=== PATIENT | female | born 2000 | race Hispanic/Latino ===

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

== ENCOUNTER 2020-08-10 11:06 | Inpatient (IN) | payer SELFPAY ==
--- NOTE | 2020-08-10 13:12 | RAD REPORT ---
EXAM DESCRIPTION: RAD - Chest Single View - 08/10/2020 1:00 pm CLINICAL HISTORY: DYSPNEA Chest pain. COMPARISON: Chest Pa And Lat (2 Views) dated 07/06/2017 FINDINGS: Portable technique limits examination quality. Mild bilateral interstitial lung opacities are present. This likely indicates a viral infection or br onchitis. The heart is normal in size. No displaced fractures.
[2020-08-10] MEDS ORDERED: ONDANSETRON 4 MG (ODT) TAB ONE (14:48)
[2020-08-10] MEDS ORDERED: ONDANSETRON 4 MG/2 ML VIAL ONE (17:19)
[2020-08-10] MEDS ORDERED: NA CHLORIDE 0.9% 1,000 ML ONE ×2 (17:20→20:56)
[2020-08-10 17:27] LABS: Absolute Lymphocytes (CBC) 0.6 K/uL (0.7-4.9); Basophils % 0.3 % (0-1.3); Hematocrit 39.8 % (36.0-45.0); Lymphocytes % 3.3 % (15.3-44.8); MPV 9.7 fL (7.6-11.3); RBC Red Blood Cell Count 4.46 M/uL (3.86-4.86)
[2020-08-10] MEDS ORDERED: PROMETHAZINE INJ 25 MG/ML AMP ONE (17:45)
[2020-08-10 18:18] LABS: Albumin 3.1 g/dL (3.4-5.0); Bilirubin Total 2.6 mg/dL (0.2-1.0); Blood Morphology Comment NOT SEEN (NOT SEEN); Platelet Estimate ADEQ; Potassium 3.5 mmol/L (3.5-5.1); Protein, Total 9.8 g/dL (6.4-8.2); White Blood Cell Scan OK (OK)
[2020-08-10 18:27] LABS: Ferritin 272.2 ng/mL (8-388)
[2020-08-10] MEDS ORDERED: MORPHINE 4 MG/ML SYR ONE (18:38)
[2020-08-10 20:03] LABS: Protime INR 1.28
[2020-08-10 20:40] LABS: SARS-COV-2 RT PCR POSITIVE (NEGATIVE)
[2020-08-10 20:49] LABS: Urine Blood 3+ (Negative); Urine Glucose Trace (Negative); Urine Protein 3+ (Negative)
[2020-08-10] MEDS ORDERED: CEFTRIAXONE/SWI 1gm 1 GM/10 ML SYR ONE (20:56)
[2020-08-10] MEDS ORDERED: NA CHLORIDE 0.9% 250 ML ONE (20:56)
[2020-08-10] MEDS ORDERED: AZITHROMYCIN 500 MG INJ IVPB ONE (20:56)
--- NOTE | 2020-08-10 20:56 | ER ---
Nurse's Notes [facility] Name: Zayda Wharton Age: 19 yrs Sex: Female : 2000 Arrival Date: 08/10/2020 Time: 11:08 Bed 5 Private MD: Diagnosis: Pneumonia due to SARS-associated coronavirus;Dehydration;Acute kidney injury;Vomiting;Diarrhea, unspecified;Streptococcal pharyngitis Presentation: 08/10 11:23 Chief complaint: Patient states: chest tightness, upper abd pain, dyspnea, n/v/d x 3 sv days. COVID + on 08/07/20. Coronavirus screen: Client denies travel out of the [place] in the last 14 days. Client presents with at least one sign or symptom that may indicate coronavirus-19. Standard/surgical mask placed on the client. Provider contacted for isolation considerations. Client reports previous positive COVID test result. Ebola Screen: No symptoms or risks identified at this time. Risk Assessment: Do you want to hurt yourself or someone else? Patient reports no desire to harm self or others. Onset of symptoms was August 07, 2020. 11:23 Acuity: YECENIA 2 sv 11:25 Initial Sepsis Screen: Does the patient meet any 2 criteria? RR > 20 per min. HR > 90 sv bpm. Yes Does the patient have a suspected source of infection? Yes: Other: COVID. 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 - Social history:: Smoking status: Patient denies any tobacco usage or history of. Screenin:30 Abuse screen: Denies threats or abuse. Denies injuries from another. Nutritional ld1 screening: No deficits noted. Tuberculosis screening: No symptoms or risk factors identified. Fall Risk IV access (20 points). Total Aponte Fall Scale indicates No Risk (0-24 pts). Assessment: 17:38 General: Appears in no apparent distress. comfortable, Behavior is calm, cooperative, ld1 appropriate for age. Pain: Complains of pain in right lower quadrant and left lower quadrant Pain does not radiate. Pain currently is 7 out of 10 on a pain scale. Quality of pain is described as stabbing, throbbing, Pain began 2-3 days ago. Is intermittent. Neuro: Level of Consciousness is awake, alert, obeys commands, Oriented to person, place, time, situation. Cardiovascular: Patient's skin is warm and dry. Respiratory: Reports shortness of breath at rest on exertion Airway is patent Respiratory effort is even, unlabored, Respiratory pattern is regular, symmetrical. GI: Abdomen is round distended, obese, Pt is actively vomiting clear fluid, Bowel sounds present X 4 quads. Abd is soft Abdomen is tender to palpation Reports lower abdominal pain. : No signs and/or symptoms were reported regarding the genitourinary system. EENT: No deficits noted. Derm: No deficits noted. 18:10 Reassessment: Unable to obtain lab orders and blood cultures. Lab notified at 1800, ld1 router setter at bedside at 1805. 18:13 Reassessment: No changes from previously documented assessment. Patient and/or family ld1 updated on plan of care and expected duration. Pain level reassessed. Patient is alert, oriented x 3, equal unlabored respirations, skin warm/dry/pink. Patient states her nausea is subsiding but still c/o lower abdominal pain level 7/10. ERP notified. See MAR for orders. 18:15 Reassessment: ERP at bedside discussing POC. ld1 19:20 Reassessment: Patient appears in no apparent distress at this time. patient sitting on mg2 the bed. 21:02 Reassessment: MOIZ Thorne - hospitalist at bedside admitting the patient. [facility] [place] 22:07 Reassessment: ultrasound at bedside. mg2 Vital Signs: 11:25 BP 104 / 71; Pulse 122; Resp 30; Temp 97.4; Pulse Ox 98% ; Weight 136.08 kg; Height 5 sv ft. 1 in. (154.94 cm); 14:28 BP 125 / 95; Pulse 106; Resp 28; Temp 97.8; Pulse Ox 98% ; ll1 17:30 BP 107 / 56; Pulse 115; Resp 20; Temp 99.0; Pulse Ox 97% on R/A; Weight 155.58 kg; ld1 Height 5 ft. 1 in. (154.94 cm); Pain 7/10; 18:13 BP 117 / 100; Pulse 116; Resp 18; Temp 99(O); Pulse Ox 99% on R/A; Pain 7/10; ld1 19:20 Pulse 108; Resp 18; Pulse Ox 96% on R/A; mg2 21:01 BP 132 / 100; Pulse 110; Resp 18; Pulse Ox 97% on R/A; mg2 17:30 Body Mass Index 64.81 (155.58 kg, 154.94 cm) ld1 ED Course: 11:08 Patient arrived in ED. ds1 11:23 Arm band placed on. sv 11:24 Triage completed. sv 13:00 Chest Single View XRAY In Process Unspecified. EDMS 16:22 Martín Rick, SANDI is PHCP. pm1 16:22 Nathaniel Rangel MD is Attending Physician. pm1 16:52 Elvia Sahu, NARENDRA is Primary Nurse. ld1 17:30 Patient has correct armband on for positive identification. Bed in low position. Call ld1 light in reach. Side rails up X2. Door closed. Noise minimized. Warm blanket given. 17:30 No provider procedures requiring assistance completed. Inserted saline lock: 20 gauge ld1 in right forearm, using aseptic technique. Blood collected. 18:11 Lipase Sent. sv 18:11 Lactate Sent. sv 18:11 Ferritin Sent. sv 18:11 D-Dimer Sent. sv 18:11 C-Reactive Protein Sent. sv 20:21 Notified Nurse Practitioner and/or Physician B[employer]hot Swage Operator of a critical lab result(s), bb D-Dimer of 3705. Martín Rick FINISHER BRUSH notified. 20:54 Yohannes Morrison is Hospitalizing Provider. pm1 20:55 Inserted saline lock: 22 gauge in left forearm, using aseptic technique. mg2 21:00 IV discontinued, intact, bleeding controlled, No redness/swelling at site. Pressure mg2 dressing applied. Administered Medications: 14:34 Drug: Zofran (Ondansetron) 4 mg Route: PO; ll1 20:32 Follow up: Response: No adverse reaction; Nausea is decreased wh 17:15 Drug: NS 0.9% 1000 ml Route: IV; Rate: 1000 ml; Site: right forearm; ld1 20:33 Follow up: Response: No adverse reaction; IV Status: Completed infusion wh 17:16 Drug: Zofran (Ondansetron) 4 mg Route: IVP; Site: right forearm; ld1 17:37 Follow up: Response: No adverse reaction ld1 20:33 Follow up: Response: No adverse reaction; Nausea is decreased 17:37 Drug: Phenergan 12.5 mg Route: IVP; Site: right forearm; ld1 17:52 Follow up: Response: Nausea is decreased; Vomiting decreased ld1 20:33 Follow up: Response: No adverse reaction; Nausea is decreased 18:24 Drug: morphine 4 mg Route: IVP; Site: right forearm; ld1 18:30 Follow up: Response: No adverse reaction ld1 21:42 Follow up: Response: No adverse reaction 21:00 Drug: AZITHromycin 500 mg Route: IVPB; Infused Over: 1 hrs; Site: left forearm; [facility] [place] 21:42 Follow up: Response: No adverse reaction; IV Status: Infusion continued upon admission 21:01 Drug: NS 0.9% 1000 ml Route: IV; Rate: 150 ml/hr; Site: left forearm; [facility] [place] 21:42 Follow up: Response: No adverse reaction; IV Status: Infusion continued upon admission 21:01 Drug: Rocephin (cefTRIAXone) 1 grams Route: IV; Rate: calculated rate; Site: left [facility] [place] forearm; 21:42 Follow up: Response: No adverse reaction; IV Status: Completed infusion Outcome: 20:55 Decision to Hospitalize by Provider. pm1 21:42 Admitted to Tele accompanied by niko, via stretcher, room 413, with chart, Report mg2 called to NARENDRA Somers 21:42 Condition: stable 21:42 Instructed on the need for admit, Demonstrated understanding of instructions. 22:10 Patient left the ED. [facility] [place] Signatures: Dispatcher [employer] India Yates RN RN Laly Egan ds1 Iram Pastrana RN RN bb Martín Rick, SANDI FINISHER BRUSH pm1 Brenda Jorgensen RN RN Anil Sanchez RN RN [facility] [place] Yosef Kumar RN RN 1 Elvia Sahu RN RN ld1 Corrections: (The following items were deleted from the chart) 11:27 11:23 Acuity: [facility]
--- NOTE | 2020-08-10 20:56 | EDPHYS ---
Physician Documentation [facility] Name: Zayda Wharton Age: 19 yrs Sex: Female : 2000 Arrival Date: 08/10/2020 Time: 11:08 Bed 5 Private MD: ED Physician Nathaniel Rangel HPI: 08/10 17:06 This 19 yrs old Female presents to ER via Ambulatory with complaints of pm1 Abdominal Pain, Chest Pain, Breathing Difficulty, COVID+. 17:06 The patient presents with abdominal pain that is diffuse, chest pain, and shortness of pm1 breath. Onset: The symptoms/episode began/occurred 2 day(s) ago. Associated signs and symptoms: Pertinent positives: nausea, vomiting, and diarrhea, chest pain, shortness of breath. Modifying factors: The symptoms are alleviated by nothing, the symptoms are aggravated by coughing, touching the area. Severity of pain: in the emergency department the pain is actually worse. The patient has not experienced similar symptoms in the past. Patient tested positive for covid on Sunday. She did not have any symptoms at that time. She was tested because all her family members were covid positive. Her symptoms all started on Sunday with cough, body aches, shortness of breath, and multiple episodes of vomiting and diarrhea. 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 - Social history:: Smoking status: Patient denies any tobacco usage or history of. ROS: 17:06 Eyes: Negative for injury, pain, redness, and discharge, ENT: Negative for injury, pm1 pain, and discharge, Neck: Negative for injury, pain, and swelling. 17:06 Back: Negative for injury and pain, MS/Extremity: Negative for injury and deformity, Skin: Negative for injury, rash, and discoloration, Neuro: Negative for headache, weakness, numbness, tingling, and seizure. 17:06 Constitutional: Positive for body aches, chills, fever, poor PO intake. 17:06 Cardiovascular: Positive for chest pain, Negative for edema. 17:06 Respiratory: Positive for cough, shortness of breath. 17:06 Abdomen/GI: Positive for abdominal pain, nausea, vomiting, and diarrhea, Negative for constipation. Exam: 17:06 Constitutional: This is a well developed, well nourished patient who is awake, alert, pm1 and in no acute distress. Head/Face: Normocephalic, atraumatic. 17:06 Back: No spinal tenderness. No costovertebral tenderness. Full range of motion. Skin: Warm, dry with normal turgor. Normal color with no rashes, no lesions, and no evidence of cellulitis. MS/ Extremity: Pulses equal, no cyanosis. Neurovascular intact. Full, normal range of motion. 17:06 Cardiovascular: Rate: tachycardic, Rhythm: regular, Pulses: no pulse deficits are appreciated. 17:06 Respiratory: the patient does not display signs of respiratory distress, Respirations: tachypnea, Breath sounds: are clear throughout. 17:06 Abdomen/GI: Inspection: obese Palpation: soft, in all quadrants, mild abdominal tenderness, diffusely. 17:06 Neuro: Exam negative for acute changes, Orientation: is normal, Mentation: is normal, Motor: is normal, moves all fours. Vital Signs: 11:25 BP 104 / 71; Pulse 122; Resp 30; Temp 97.4; Pulse Ox 98% ; Weight 136.08 kg; Height 5 sv ft. 1 in. (154.94 cm); 14:28 BP 125 / 95; Pulse 106; Resp 28; Temp 97.8; Pulse Ox 98% ; ll1 17:30 BP 107 / 56; Pulse 115; Resp 20; Temp 99.0; Pulse Ox 97% on R/A; Weight 155.58 kg; ld1 Height 5 ft. 1 in. (154.94 cm); Pain 7/10; 18:13 BP 117 / 100; Pulse 116; Resp 18; Temp 99(O); Pulse Ox 99% on R/A; Pain 7/10; ld1 19:20 Pulse 108; Resp 18; Pulse Ox 96% on R/A; mg2 21:01 BP 132 / 100; Pulse 110; Resp 18; Pulse Ox 97% on R/A; mg2 17:30 Body Mass Index 64.81 (155.58 kg, 154.94 cm) ld1 MDM: 16:37 Patient medically screened. pm1 20:51 Data reviewed: vital signs. Data interpreted: Pulse oximetry: on room air is 96 %. pm1 Interpretation: normal. Counseling: I had a detailed discussion with the patient and/or guardian regarding: the historical points, exam findings, and any diagnostic results supporting the discharge/admit diagnosis, lab results, radiology results, the need for further work-up and treatment in the hospital. 08/10 16:54 Order name: CBC with Diff; Complete Time: 18:32 pm1 08/10 16:54 Order name: CMP; Complete Time: 18:32 pm1 08/10 16:56 Order name: Troponin (emerg Dept Use Only); Complete Time: 18:32 pm1 08/10 17:40 Order name: Blood Culture Adult (2) pm1 08/10 17:40 Order name: C-Reactive Protein pm1 08/10 17:40 Order name: D-Dimer pm1 08/10 17:40 Order name: Ferritin pm1 08/10 17:40 Order name: Flu pm1 08/10 17:40 Order name: Lactate pm1 08/10 17:40 Order name: Lipase pm1 08/10 17:40 Order name: Procalcitonin; Complete Time: 20:20 pm1 08/10 17:40 Order name: PT-INR; Complete Time: 20:25 pm1 08/10 17:40 Order name: Ptt, Activated; Complete Time: 20:25 pm1 08/10 17:40 Order name: Strep; Complete Time: 21:11 pm1 08/10 11:26 Order name: Chest Single View XRAY; Complete Time: 16:22 kb 08/10 17:40 Order name: Urine Microscopic Only; Complete Time: 21:53 pm1 08/10 17:41 Order name: Blood Culture EDMS 08/10 17:41 Order name: C-Reactive Protein; Complete Time: 18:32 EDMS 08/10 17:41 Order name: D-Dimer; Complete Time: 20:25 EDMS 08/10 17:41 Order name: Ferritin; Complete Time: 18:32 EDMS 08/10 17:41 Order name: Lactate; Complete Time: 20:50 EDMS 08/10 17:41 Order name: Lipase; Complete Time: 18:32 EDMS 08/10 18:18 Order name: CBC Smear Scan; Complete Time: 18:32 EDMS 08/10 20:41 Order name: COVID-19/FLU A+B; Complete Time: 20:50 EDMS 08/10 20:49 Order name: Urine Dipstick-Ancillary EDOR 08/10 20:54 Order name: Test, Serum; Complete Time: 21:53 mw2 08/10 21:35 Order name: Urine Culture EDOR 08/10 16:54 Order name: IV Saline Lock; Complete Time: 17:15 pm1 08/10 16:56 Order name: EKG; Complete Time: 16:56 pm1 08/10 16:56 Order name: EKG - Nurse/Tech; Complete Time: 17:37 pm1 08/10 17:40 Order name: Cardiac monitoring; Complete Time: 18:11 pm1 08/10 17:40 Order name: Droplet/Contact Precautions; Complete Time: 18:11 pm1 08/10 17:40 Order name: Labs collected and sent; Complete Time: 20:32 pm1 08/10 17:40 Order name: O2 Per Protocol; Complete Time: 18:06 pm1 08/10 17:40 Order name: O2 Sat Monitoring; Complete Time: 18:06 pm1 08/10 17:40 Order name: Urine Dipstick-Ancillary (obtain specimen); Complete Time: 20:35 pm1 08/10 17:57 Order name: Urine Test (obtain specimen); Complete Time: 20:35 pm1 08/10 21:21 Order name: Abdomen Exam Complete EDOR 08/10 21:24 Order name: CONS Physician Consult EDOR Administered Medications: 14:34 Drug: Zofran (Ondansetron) 4 mg Route: PO; ll1 20:32 Follow up: Response: No adverse reaction; Nausea is decreased wh 17:15 Drug: NS 0.9% 1000 ml Route: IV; Rate: 1000 ml; Site: right forearm; ld1 20:33 Follow up: Response: No adverse reaction; IV Status: Completed infusion wh 17:16 Drug: Zofran (Ondansetron) 4 mg Route: IVP; Site: right forearm; ld1 17:37 Follow up: Response: No adverse reaction ld1 20:33 Follow up: Response: No adverse reaction; Nausea is decreased wh 17:37 Drug: Phenergan 12.5 mg Route: IVP; Site: right forearm; ld1 17:52 Follow up: Response: Nausea is decreased; Vomiting decreased ld1 20:33 Follow up: Response: No adverse reaction; Nausea is decreased 18:24 Drug: morphine 4 mg Route: IVP; Site: right forearm; ld1 18:30 Follow up: Response: No adverse reaction ld1 21:42 Follow up: Response: No adverse reaction 21:00 Drug: AZITHromycin 500 mg Route: IVPB; Infused Over: 1 hrs; Site: left forearm; mg2 21:42 Follow up: Response: No adverse reaction; IV Status: Infusion continued upon admission 21:01 Drug: NS 0.9% 1000 ml Route: IV; Rate: 150 ml/hr; Site: left forearm; mg2 21:42 Follow up: Response: No adverse reaction; IV Status: Infusion continued upon admission 21:01 Drug: Rocephin (cefTRIAXone) 1 grams Route: IV; Rate: calculated rate; Site: left mg2 forearm; 21:42 Follow up: Response: No adverse reaction; IV Status: Completed infusion Disposition: 08/11 07:02 Co-signature as Attending Physician, Nathaniel Rangel MD. rn Disposition: 08/10/20 20:55 Hospitalization ordered by Yohannes Morrison for Inpatient Admission. Preliminary diagnosis are Pneumonia due to SARS-associated coronavirus, Dehydration, Acute kidney injury, Vomiting, Diarrhea, unspecified, Streptococcal pharyngitis. - Bed requested for Telemetry/MedSurg (Inpatient). - Status is Inpatient Admission. mg2 - Condition is Stable. - Problem is new. - Symptoms have improved. Signatures: Dispatcher [employer] EDMS India Sanchez RN RN sv Nieto, Roman, MD MD rn Garcia, Cindy, RN RN cg Marinas, Patrick, NP CHICKEN BONER pm1 Anil Sanchez RN RN mg2 Yosef Kumar RN RN ll1 Elvia Sahu RN RN [email or web address] Brenda Jorgensen RN Corrections: (The following items were deleted from the chart) 08/10 18:48 17:42 Abdomen Pelvis W Con+CT.RAD.BRZ ordered. EDMS EDMS 18:48 17:42 Chest For PE Angio+CT.RAD.BRZ ordered. EDMS EDMS 19:49 17:41 Influenza Screen (A ordered. EDMS EDMS 19:49 17:57 CORONAVIRUS+MR.LAB.BRZ ordered. EDMS EDMS 21:34 20:55 Hospitalization Ordered by Yohannes Morrison for Inpatient Admission. Preliminary cg diagnosis is Pneumonia due to SARS-associated coronavirus; Dehydration; Acute kidney injury; Vomiting; Diarrhea, unspecified. Bed requested for Telemetry/MedSurg (Inpatient). Status is Inpatient Admission. Condition is Stable. Problem is new. Symptoms have improved. pm1 21:34 21:34 08/10/2020 20:55 Hospitalization Ordered by Yohannes Morrison for Inpatient pm1 Admission. Preliminary diagnosis is Pneumonia due to SARS-associated coronavirus; Dehydration; Acute kidney injury; Vomiting; Diarrhea, unspecified. Bed requested for Telemetry/MedSurg (Inpatient). Status is Inpatient Admission. Condition is Stable. Problem is new. Symptoms have improved. cg 22:10 21:34 08/10/2020 20:55 Hospitalization Ordered by Yohannes Morrison for Inpatient mg2 Admission. Preliminary diagnosis is Pneumonia due to SARS-associated coronavirus; Dehydration; Acute kidney injury; Vomiting; Diarrhea, unspecified; Streptococcal pharyngitis. Bed requested for Telemetry/MedSurg (Inpatient). Status is Inpatient Admission. Condition is Stable. Problem is new. Symptoms have improved. pm1
[2020-08-10 21:34] LABS: Urine Amorphous Sediment 1+ /HPF (NONE SEEN); Urine Bacteria LOADED /HPF (<20)
[2020-08-10] MEDS ORDERED: IVERMECTIN 3 MG TABLET PO SCH (22:00)
[2020-08-10] MEDS ORDERED: BENZONATATE 100 MG CAP PO PRN (22:33)
[2020-08-10] MEDS ORDERED: ACETAMINOPHEN 500 MG TAB PO PRN (22:33)
[2020-08-10] MEDS: NA CHLORIDE 0.9% 1,000 ML IV SCH (23:00)
[2020-08-10 23:49] VITALS: BMI 66.5
[2020-08-11] MEDS: MORPHINE 2 MG/ML SYR IV PRN ×3 (00:27→23:25)
[2020-08-11] MEDS ORDERED: APIXABAN 5 MG TABLET PO SCH ×2 (01:54→09:00)
[2020-08-11 04:22] LABS: Basophils % 0.2 % (0-1.3); Hematocrit 33.2 % (36.0-45.0); MPV 10.5 fL (7.6-11.3); RBC Red Blood Cell Count 3.74 M/uL (3.86-4.86)
[2020-08-11 04:43] LABS: Thyroid Stimulating Hormone 1.01 uIU/mL (0.360-3.740); Uric Acid 11.4 mg/dL (2.6-6.0)
[2020-08-11 04:44] LABS: ALT/SGPT 39 U/L (12-78); AST/SGOT 39 U/L (15-37); Albumin 2.4 g/dL (3.4-5.0); Alkaline Phosphatase 72 U/L (45-117); BUN Blood Urea Nitrogen 37 mg/dL (7-18); Bicarbonate 26 mmol/L (21-32); Bilirubin Total 2.3 mg/dL (0.2-1.0); Glucose Level 132 mg/dL (74-106); Magnesium 1.8 mg/dL (1.8-2.4); Potassium 3.4 mmol/L (3.5-5.1); Protein, Total 7.7 g/dL (6.4-8.2); Sodium Level 137 mmol/L (136-145)
--- NOTE | 2020-08-11 05:31 | P.HP ---
Certification for Inpatient Patient admitted to: Inpatient With expected LOS: >2 Midnights Patient will require the following post-hospital care: None Practitioner: I am a practitioner with admitting privileges, knowledge of patient current condition, hospital course, and medical plan of care. Services: Services provided to patient in accordance with Admission requirements found in Title 42 Section 412.3 of the Code of Federal Regulations <Cody Long - Last Filed: 08/11/20 05:45> Patient History Date of Service: 08/11/20 Reason for admission: covid pneumonia, CELESTE, UTI History of Present Illness: Ms. Wharton is a 19 yo F with no PMH here today with COVID + diagnosis on Sunday, symptom onset on Sunday. She had nonstop vomiting, diarrhea, chills, 10/10 RLQ abdominal pain. She says she has had this abdominal pain 1-2x in the past. Pain is worse with ambulation, improved wiht Alleve. She reports night sweats, cough, SOB, wheezing, polyuria, flank pain. She denies dysuria, hemoptysis. WBC 17.6. D dimer 3705. Na 133. BUN 30. Cr 2.4. GFR 26. lactic acid 2.7. CRP 344. Procal 7.04. Tbili 2.6. AST 42. T protein 9.8. Albumin 3.1. Strep positive. Urine blood 3+, leukocyte 3+, RBC 5-10, WBC 5-10, Bacteria loaded, protein 3+. - Past Medical/Surgical History Has patient received pneumonia vaccine in the past: No Diabetic: No Past Medical History: Patient denies medical history Past Surgical History: Patient denies surgical history - Family History Brother -: Lung disease Notes: asthma - Social History Smoking Status: Never smoker Alcohol use: Yes CD- Drugs: No Caffeine use: Yes Place of Residence: Home <Cody Long - Last Filed: 08/11/20 05:45> Date of Service: 08/11/20 <mayra ribeiro - Last Filed: 08/11/20 19:29> Allergies No Known Allergies Allergy (Verified 08/10/20 23:49) Home Medications: NK [No Home Meds] 08/10/20 Review of Systems General: Chills, Sweats, As per HPI Eyes: Unremarkable ENT: Unremarkable Respiratory: Cough, Shortness of Breath, As per HPI Cardiovascular: Unremarkable Gastrointestinal: Nausea, Vomiting, Abdominal Pain, As per HPI Genitourinary: Frequency, As per HPI Musculoskeletal: Unremarkable Integumentary: Unremarkable Neurological: Unremarkable Lymphatics: Unremarkable <Cody Long - Last Filed: 08/11/20 05:45> Physical Examination - Vital Signs Temperature: 97.6 F Blood Pressure: 120/68 Pulse: 96 Respirations: 20 Pulse Ox (%): 92 - Physical Exam General: Alert, In no apparent distress, Oriented x3, Cooperative HEENT: Atraumatic, Normocephalic, PERRLA, Mucous membr. moist/pink Neck: Supple, 2+ carotid pulse no bruit, JVD not distended, No Thyromegaly, No LAD Respiratory: Diminished Cardiovascular: No edema, Normal pulses, Regular rate/rhythm, Normal S1 S2, No gallops, No rubs, No murmurs Capillary refill: <2 Seconds Gastrointestinal: Normal bowel sounds, Soft and benign, Non-distended, No ascites, No masses, No rebound, No guarding, Tenderness Musculoskeletal: No clubbing, No swelling, No contractures, No erythema, No tenderness, No warmth Integumentary: No rashes, No breakdown, No significant lesion, No tenderness/swelling, No erythema, No warmth, No cyanosis Neurological: Normal gait, Normal speech, Normal strength at 5/5 x4 extr, Normal tone, Sensation intact, Cranial nerves 3-12 intact, Normal affect Lymphatics: No axilla or inguinal lymphadenopathy - Studies Laboratory Data (last 24 hrs) 08/10/20 18:41: PT 14.8 H, INR 1.28, APTT 34.1 08/10/20 17:10: Lipase 100 08/10/20 17:10: Sodium 133 L, Potassium 3.5, BUN 30 H, Creatinine 2.40 H, Glucose 133 H, Total Bilirubin 2.6 H, AST 42 H, ALT 53, Alkaline Phosphatase 98 08/10/20 17:10: WBC 17.60 H, Hgb 13.5, Hct 39.8, Plt Count 196 Microbiology Data (last 24 hrs): 08/10/20 17:40 Throat Group A Streptococcus Rapid Screen - Final <Cody Long - Last Filed: 08/11/20 05:45> - Studies Laboratory Data (last 24 hrs) 08/10/20 18:41: PT 14.8 H, INR 1.28, APTT 34.1 Microbiology Data (last 24 hrs): 08/10/20 17:40 Throat Group A Streptococcus Rapid Screen - Final <mayra ribeiro - Last Filed: 08/11/20 19:29> Assessment and Plan - Problems (Diagnosis) (1) Pneumonia due to COVID-19 virus Current Visit: Yes Status: Acute (2) UTI (urinary tract infection) Current Visit: Yes Status: Acute Qualifiers: Urinary tract infection type: site unspecified Hematuria presence: without hematuria Qualified Code(s): N39.0 - Urinary tract infection, site not specified (3) Strep pharyngitis Current Visit: Yes Status: Acute (4) CELESTE (acute kidney injury) Current Visit: Yes Status: Acute (5) Elevated d-dimer Current Visit: Yes Status: Acute - Plan consulted pulm and respiratory therapy covid supplements, IV steroids, daily room air sats, currently on room air, breathing treatments PRN for tachypnea elevated d dimer, unable to get CTPE due to CELESTE, eliquis 10mg BID nephrology consulted for CELESTE, bladder scan pending sputum, urine, and blood cultures pending ceftriaxone and azithromycin daily to treat UTI and strep Discharge Plan: Home Plan to discharge in: 72 Hours - Advance Directives Does patient have a Living Will: No Does patient have a Durable POA for Healthcare: No - Code Status/Comfort Care Code Status Assessed: Yes (full code) Critical Care: No Time Spent Managing Pts Care (In Minutes): 70 <Cody Long - Last Filed: 08/11/20 05:45> - Problems (Diagnosis) (1) CELESTE (acute kidney injury) Current Visit: Yes Status: Acute (2) Elevated d-dimer Current Visit: Yes Status: Acute (3) Pneumonia due to COVID-19 virus Current Visit: Yes Status: Acute (4) Strep pharyngitis Current Visit: Yes Status: Acute (5) UTI (urinary tract infection) Current Visit: Yes Status: Acute Qualifiers: Urinary tract infection type: site unspecified Hematuria presence: without hematuria Qualified Code(s): N39.0 - Urinary tract infection, site not specified Physician Review: Patient Assessed, Agree with Above Assessment and Plan Physician Review Additional Text: CELESTE COVID Pneumonia plan: IV steroid Vitamin supplementation Consult to pulmonary Consulting nephrology Monitor renal function. <mayra ribeiro - Last Filed: 08/11/20 19:29>
[2020-08-11 06:00] LABS: NT PRO-BNP 24 pg/mL (<125); Troponin I < 0.02 ng/mL (0.0-0.045)
--- NOTE | 2020-08-11 07:57 | P.CNS ---
Date of Consult: 08/11/20 Reason for Consult: CELESTE Chief Complaint: covid pneumonia, CELESTE, UTI History of Present Illness: 19F w/ PMHx & recent dx of covid infection last wk, who p/w N/V/D/abd/flank pain, cough, SOB, night sweats, & chills admitted for covid PNA found to have UTI & CELESTE, admitted for further eval & mngt. Allergies No Known Allergies Allergy (Verified 08/10/20 23:49) Home Medications: NK [No Home Meds] 08/10/20 - Past Medical/Surgical History Diabetic: No - Family History Brother Medical History: Lung disease Notes: asthma - Social History Alcohol use: Yes CD- Drugs: No Caffeine use: Yes Place of Residence: Home Review of Systems General: Sweats, Malaise Eyes: Unremarkable ENT: Unremarkable Respiratory: Cough, Shortness of Breath Cardiovascular: Unremarkable Gastrointestinal: Nausea, Vomiting, Abdominal Pain, Diarrhea Genitourinary: Unremarkable Musculoskeletal: Unremarkable (gen weakness) Integumentary: Unremarkable Neurological: Weakness Lymphatics: Unremarkable Physical Examination Temp Pulse Resp BP Pulse Ox 97.6 F 96 H 20 120/68 92 08/11/20 05:50 08/11/20 05:50 08/11/20 05:50 08/11/20 05:50 08/11/20 05:50 Other Physical/Emotional Findings: P.E. not done d/t covid isolation Laboratory Data (last 24 hrs) 08/10/20 18:41: PT 14.8 H, INR 1.28, APTT 34.1 08/10/20 17:10: Lipase 100 08/10/20 17:10: Sodium 133 L, Potassium 3.5, BUN 30 H, Creatinine 2.40 H, Glucose 133 H, Total Bilirubin 2.6 H, AST 42 H, ALT 53, Alkaline Phosphatase 98 08/10/20 17:10: WBC 17.60 H, Hgb 13.5, Hct 39.8, Plt Count 196 Conclusions/Impression: # CELESTE likely 2/2 prerenal state + ATN/sepsis Received IV fluids ? UTI; cont abx; f/u UCx Monitor renal panel + I&O # Sepsis 2/2 covid pna Mngt per primary team Cautious IV/po fluid hydration as goal is to keep lungs dry w/ covid pna # Hyperuricemia Received IV fluids Recheck serum urate when no longer volume depleted # Hypokalemia Replete via KCl
[2020-08-11] MEDS ORDERED: POTASSIUM CL SA 10 MEQ TAB PO ONE (08:00)
--- NOTE | 2020-08-11 08:02 | RAD REPORT ---
EXAM DESCRIPTION: US - Urinary Bladder - 08/11/2020 7:15 am CLINICAL HISTORY: Acute renal insufficiency FINDINGS: The bladder is not well distended but appears grossly normal. 9 centimeter cystic right adnexal mass. IMPRESSION: No gross abnormality of an incompletely distended bladder. 9 centimeter right adnexal cystic mass probably an ovarian cyst. Blood flow to the right ovary is see n. Follow-up ultrasound in 6 weeks recommended
[2020-08-11] MEDS: NA CHLORIDE 0.9% 1,000 ML IV SCH (08:33)
[2020-08-11] MEDS ORDERED: CEFTRIAXONE 1 GM/NS 50 ML 1 GM/50 ML BAG IV SCH (09:00)
[2020-08-11] MEDS ORDERED: ALBUTEROL 2.5 MG/3 ML NEB SOL NEB PRN (09:00)
[2020-08-11] MEDS ORDERED: FUROSEMIDE 40 MG/4 ML VIAL IV SCH (09:00)
[2020-08-11] MEDS: VITAMIN D 1000 UNIT TAB PO SCH (09:36)
[2020-08-11] MEDS: ASCORBIC ACID 500 MG TABLET PO SCH ×4 (09:36→21:27)
[2020-08-11] MEDS: FAMOTIDINE 20 MG TAB PO SCH (09:36)
[2020-08-11] MEDS: ZINC SULFATE 220 MG CAP PO SCH (09:37)
[2020-08-11] MEDS: METHYLPREDNISOLONE 125 MG INJ IV SCH ×2 (09:37→21:27)
[2020-08-11] MEDS: THIAMINE HCL 100 MG TABLET PO SCH (09:37)
[2020-08-11] MEDS: IVERMECTIN 3 MG TABLET PO SCH (09:44)
[2020-08-11] MEDS: ONDANSETRON 4 MG/2 ML VIAL IV PRN ×2 (10:02→23:25)
[2020-08-11 10:17] LABS: Urine pH >=9.0 (5.0-7.0)
--- NOTE | 2020-08-11 11:04 | RAD REPORT ---
EXAM DESCRIPTION: US - Abdomen Exam Complete - 08/10/2020 10:13 pm CLINICAL HISTORY: RLQ abdominal and flank pain TECHNIQUE: Real-time and stephens scale sonographic imaging of the abdomen was performed. COMPARISON: None available for comparison FINDINGS: Limitations: Technically limited secondary to overlying body habitus. Liver: 19.9 cm. Mildly increased in echogenicity compatible with steatosis. No focal mass. Gallbladder: No gallstones, wall thickening, or pericholecystic fluid. Common bile duct: 7 mm in diameter. There is no intrahepatic biliary ductal dilatation. Pancreas: The pancreas is obscured by overlying bowel gas. Right kidney: 11.9 x 5.5 x 5 cm. No focal mass, calculus or hydronephrosis. Left kidney: 12 x 6.7 x 4.6 cm. No focal mass, calculus or hydronephrosis. Spleen: Obscured Aorta: Obscured IVC: Unremarkable as visualized Free fluid: None IMPRESSION: Technically limited exam. No acute abnormality. Electronically signed by: Damion Lopes MD 08/10/2020 10:24 PM CDT Due to temporary technical issues with the PACS/Fluency reporting system, reports are being signed by the in house radiologist without review as a courtesy to ensure prompt reporting. The interpreting r adiologist is fully responsible for the content of the report.
--- NOTE | 2020-08-11 12:48 | EKG ---
Test Date: 2020-08-10 Test Time: 17:32:42 Bookkeeping Machine Mechanic: Danyelle COLEMAN MEASUREMENT RESULTS: Intervals: Rate: 115 RI: 122 QRSD: 78 QT: 310 QTc: 428 [place]: P: 42 RI: 122 QRS: 49 T: 132 INTERPRETIVE STATEMENTS: Sinus tachycardia ST & T wave abnormality, consider lateral ischemia Abnormal ECG No previous ECG available for comparison Electronically Signed On 08-11-20 12:45:34 CDT by Krishan Watt
--- NOTE | 2020-08-11 12:54 | P.CNS ---
Date of Consult: 08/11/20 Reason for Consult: Irvin virus pneumonia Chief Complaint: covid pneumonia, CELESTE, UTI History of Present Illness: Patient is 19 years of age diagnosed with irvin virus on Sunday came in with nonstop vomiting diarrhea chills right upper quadrant discomfort has an abdominal discomfort presented with minimal hypoxemia and renal failure patient does not have a physician does not take any medication at home Allergies No Known Allergies Allergy (Verified 08/10/20 23:49) Home Medications: NK [No Home Meds] 08/10/20 - Past Medical/Surgical History Diabetic: No - Family History Brother Medical History: Lung disease Notes: asthma - Social History Alcohol use: Yes CD- Drugs: No Caffeine use: Yes Place of Residence: Home Review of Systems General: Weakness Respiratory: Shortness of Breath Physical Examination Temp Pulse Resp BP Pulse Ox 100 F 96 H 21 H 136/71 95 08/11/20 12:00 08/11/20 12:00 08/11/20 12:00 08/11/20 12:00 08/11/20 12:00 Laboratory Data (last 24 hrs) 08/10/20 18:41: PT 14.8 H, INR 1.28, APTT 34.1 08/10/20 17:10: Lipase 100 08/10/20 17:10: Sodium 133 L, Potassium 3.5, BUN 30 H, Creatinine 2.40 H, Glucose 133 H, Total Bilirubin 2.6 H, AST 42 H, ALT 53, Alkaline Phosphatase 98 08/10/20 17:10: WBC 17.60 H, Hgb 13.5, Hct 39.8, Plt Count 196 - Problems (1) Pneumonia due to COVID-19 virus Current Visit: Yes Status: Acute Plan: Patient is 19 years of age admitted with mild hypoxemia irvin virus pneumonia some interstitial changes white count is elevated (2) Renal failure Current Visit: Yes Status: Acute Plan: Patient admitted with renal failure not sure whether this acute on chronic of chronic ultrasound does not show any evidence of obstruction nephrology has been console did the no improvement with IV fluids the Lasix given continue with steroid D-dimer elevated as most likely from irvin virus infection also has a mild temperature room-air sat is 92% Qualifiers: Acute renal failure type: unspecified
[2020-08-11] MEDS ORDERED: Remdesivir 200 MG in NA CHLORIDE 0.9% 250 ML IV ONE (13:30)
[2020-08-11 14:37] LABS: Urine Protein/Creatinine Ratio 1.6 ratio (<0.15)
[2020-08-11 14:38] LABS: UR PROTEIN 99 mg/dL (<11.9); UR SODIUM 56 mmol/L (27-287)
[2020-08-11] MEDS ORDERED: CEFTRIAXONE/SWI 1gm 1 GM/10 ML SYR IV SCH (18:00)
[2020-08-11] MEDS ORDERED: AZITHROMYCIN IV 500 MG in NA CHLORIDE 0.9% 250 ML IVPB SCH (18:00)
[2020-08-11 19:01] LABS: Urine Appearance CLOUDY (Clear); Urine Bilirubin NEGATIVE (Negataive); Urine Blood 3+ (Negative); Urine Color YELLOW (Yellow); Urine Glucose NEGATIVE (Negative); Urine Microscopic Reflex ORDER UMIC; Urine Protein 2+ (Negative); Urine Urobilinogen 0.2 mg/dL (0.2-1.0)
[2020-08-11 19:02] LABS: Urine Bacteria 20-50 /HPF (<20); Urine RBC <5 /HPF (NONE SEEN)
--- NOTE | 2020-08-11 19:10 | P.PN ---
Subjective Date of Service: 08/11/20 Chief Complaint: covid pneumonia, CELESTE, UTI Patient denies shortness of breath. She is tolerating room air. Serum creatinine trended up. Physical Examination - Vital Signs Temperature: 96.8 F Blood Pressure: 125/72 Pulse: 85 Respirations: 32 Pulse Ox (%): 95 - Physical Exam General: Alert, In no apparent distress, Obese Neck: JVD not distended Respiratory: Other (Non-labored breathing) Cardiovascular: No edema, Regular rate/rhythm Gastrointestinal: Soft and benign, Non-distended Musculoskeletal: No swelling, No erythema Integumentary: No rashes Neurological: Normal strength at 5/5 x4 extr - Studies Laboratory Data (last 24 hrs) 08/10/20 18:41: PT 14.8 H, INR 1.28, APTT 34.1 Microbiology Data (last 24 hrs): 08/10/20 17:40 Throat Group A Streptococcus Rapid Screen - Final Assessment And Plan - Current Problems (Diagnosis) (1) CELESTE (acute kidney injury) Current Visit: Yes Status: Acute (2) Elevated d-dimer Current Visit: Yes Status: Acute (3) Pneumonia due to COVID-19 virus Current Visit: Yes Status: Acute (4) Strep pharyngitis Current Visit: Yes Status: Acute (5) UTI (urinary tract infection) Current Visit: Yes Status: Acute Qualifiers: Urinary tract infection type: site unspecified Hematuria presence: without hematuria Qualified Code(s): N39.0 - Urinary tract infection, site not specified - Plan Awaiting nephrology recommendation regarding CELESTE. Discontinue IV Lasix since her creatinine trended up. Continue IV antibiotics. Pulmonary is following. Patient started on Remdesivir. Continue IV steroid Continue Eliquis. Patient is on zinc, thiamine, vitamin-C and vitamin-D. Supplemental oxygen as needed.
[2020-08-11] MEDS: APIXABAN 5 MG TABLET PO SCH (21:27)
[2020-08-12 04:06] LABS: Absolute Lymphocytes (CBC) 0.4 K/uL (0.7-4.9); Lymphocytes % 5.3 % (15.3-44.8); MPV 10.1 fL (7.6-11.3); RBC Red Blood Cell Count 3.31 M/uL (3.86-4.86)
[2020-08-12 04:21] LABS: Albumin 2.2 g/dL (3.4-5.0); Bilirubin Direct 0.9 mg/dL (0-0.2); Bilirubin Total 1.4 mg/dL (0.2-1.0); Potassium 3.7 mmol/L (3.5-5.1); Protein, Total 7.9 g/dL (6.4-8.2)
[2020-08-12] MEDS: MORPHINE 2 MG/ML SYR IV PRN (05:45)
--- NOTE | 2020-08-12 07:43 | P.PN ---
Subjective Date of Service: 08/13/20 Chief Complaint: covid pneumonia, CELESTE, UTI Subjective: No new changes Physical Examination - Vital Signs Temperature: 96.8 F Blood Pressure: 129/74 Pulse: 95 Respirations: 20 Pulse Ox (%): 92 - Physical Exam Other Physical/Emotional Findings: P.E. not done d/t covid isolation Assessment And Plan - Plan # CELESTE likely 2/2 prerenal state + ATN/sepsis Improving Received IV fluids ? UTI; cont abx; f/u UCx Monitor renal panel + I&O # Sepsis 2/2 covid pna Mngt per primary team Cautious IV/po fluid hydration as goal is to keep lungs dry w/ covid pna # Hyperuricemia Received IV fluids Recheck serum urate when no longer volume depleted # Hypokalemia Resolved Monitor/replete prn via KCl Physician Review: Patient Assessed, Agree with Above Assessment and Plan
[2020-08-12 08:18] LABS: Magnesium 2.5 mg/dL (1.8-2.4)
[2020-08-12] MEDS ORDERED: CEFTRIAXONE 1 GM/NS 50 ML 1 GM/50 ML BAG IV SCH (09:00)
[2020-08-12] MEDS: ZINC SULFATE 220 MG CAP PO SCH (09:38)
[2020-08-12] MEDS: ASCORBIC ACID 500 MG TABLET PO SCH ×4 (09:38→21:55)
[2020-08-12] MEDS: APIXABAN 5 MG TABLET PO SCH ×2 (09:38→21:56)
[2020-08-12] MEDS: THIAMINE HCL 100 MG TABLET PO SCH (09:39)
[2020-08-12] MEDS: METHYLPREDNISOLONE 125 MG INJ IV SCH ×2 (09:39→21:55)
[2020-08-12] MEDS: VITAMIN D 1000 UNIT TAB PO SCH (09:39)
[2020-08-12] MEDS: FAMOTIDINE 20 MG TAB PO SCH (09:39)
--- NOTE | 2020-08-12 09:40 | P.PN ---
Subjective Date of Service: 08/12/20 Chief Complaint: covid pneumonia, CELESTE, UTI Subjective: C/O voiced (c/o of back pain - no SOB , no cough) Physical Examination - Vital Signs Temperature: 96.8 F Blood Pressure: 129/74 Pulse: 95 Respirations: 20 Pulse Ox (%): 92 - Physical Exam General: Alert, In no apparent distress, Oriented x3, Obese HEENT: Atraumatic, Normocephalic, PERRLA Neck: Supple, 2+ carotid pulse no bruit, JVD not distended Respiratory: Clear to auscultation bilaterally, Normal air movement, Diminished Cardiovascular: No edema, Normal pulses, Regular rate/rhythm Capillary refill: <2 Seconds Gastrointestinal: Normal bowel sounds, Soft and benign, Non-distended Musculoskeletal: No clubbing, No swelling Integumentary: No rashes, No breakdown, No significant lesion Neurological: Normal gait, Normal speech, Normal strength at 5/5 x4 extr Other Physical/Emotional Findings: P.E. not done d/t covid isolation Assessment And Plan - Current Problems (Diagnosis) (1) CELESTE (acute kidney injury) Current Visit: Yes Status: Acute (2) Pneumonia due to COVID-19 virus Current Visit: Yes Status: Acute (3) UTI (urinary tract infection) Current Visit: Yes Status: Acute Qualifiers: Urinary tract infection type: site unspecified Hematuria presence: without hematuria Qualified Code(s): N39.0 - Urinary tract infection, site not specified Physician Review: Patient Assessed, Agree with Above Assessment and Plan Physician Review Additional Text: Acute kidney injury-likely due to cold VD HTN Obesity Back pain-intermittent Covid 19 pneumonia Plan Creatinine slightly improved to 2.57 Volume status controlled, no need for IV fluid all Lasix now Continue pain regimen p.r.n. for pain Increase mobility discuss If further improvement in creatinine a.m., can discharge home We benefit from Trental for renal tubular protection Time Spent Managing PTS Care (In Minutes): 35
[2020-08-12] MEDS: Remdesivir 100 MG in NA CHLORIDE 0.9% 250 ML IV SCH (10:07)
[2020-08-12] MEDS: PENTOXIFYLLINE ER 400 MG TAB PO SCH ×2 (12:41→21:55)
[2020-08-12] MEDS: CEFTRIAXONE/SWI 1gm 1 GM/10 ML SYR IV SCH (16:26)
[2020-08-12] MEDS: Oxycodone HCl/Acetaminophen 1 TAB TAB PO PRN ×2 (16:27→21:54)
[2020-08-13] MEDS: Oxycodone HCl/Acetaminophen 1 TAB TAB PO PRN ×3 (03:27→11:45)
[2020-08-13 04:41] LABS: Albumin 2.4 g/dL (3.4-5.0); Bilirubin Direct 0.4 mg/dL (0-0.2); Bilirubin Total 0.8 mg/dL (0.2-1.0); Magnesium 2.8 mg/dL (1.8-2.4); Phosphorus 3.3 mg/dL (2.5-4.9); Potassium 4.2 mmol/L (3.5-5.1); Protein, Total 8.2 g/dL (6.4-8.2)
[2020-08-13] MEDS: ZINC SULFATE 220 MG CAP PO SCH (07:52)
[2020-08-13] MEDS: FAMOTIDINE 20 MG TAB PO SCH (07:53)
[2020-08-13] MEDS: ASCORBIC ACID 500 MG TABLET PO SCH ×4 (07:53→21:44)
[2020-08-13] MEDS: APIXABAN 5 MG TABLET PO SCH ×2 (07:53→21:44)
[2020-08-13] MEDS: IVERMECTIN 3 MG TABLET PO SCH (07:53)
[2020-08-13] MEDS: METHYLPREDNISOLONE 125 MG INJ IV SCH ×2 (07:53→21:44)
[2020-08-13] MEDS: VITAMIN D 1000 UNIT TAB PO SCH (07:53)
[2020-08-13] MEDS: THIAMINE HCL 100 MG TABLET PO SCH (07:54)
[2020-08-13] MEDS: PENTOXIFYLLINE ER 400 MG TAB PO SCH ×2 (07:56→21:44)
--- NOTE | 2020-08-13 07:56 | P.PN ---
Subjective Date of Service: 08/13/20 Chief Complaint: covid pneumonia, CELESTE, UTI Subjective: No new changes, Tolerating diet Physical Examination - Vital Signs Temperature: 96.8 F Blood Pressure: 129/74 Pulse: 95 Respirations: 20 Pulse Ox (%): 92 - Physical Exam Other Physical/Emotional Findings: P.E. not done d/t covid isolation Assessment And Plan - Plan # CELESTE likely 2/2 prerenal state + ATN/sepsis Continues to improve Received IV fluids [place] po fluid intake Monitor renal panel + I&O # Klebsiella UTI May switch rocephin to po abx # Sepsis 2/2 covid pna Mngt per primary team Cautious IV/po fluid hydration as goal is to keep lungs dry w/ covid pna # Hyperuricemia Received IV fluids Recheck serum urate when no longer volume depleted Physician Review: Patient Assessed, Agree with Above Assessment and Plan Physician Review Additional Text: CELESTE COVID Pneumonia plan: IV steroid Vitamin supplementation Consult to pulmonary Consulting nephrology Monitor renal function.
[2020-08-13] MEDS: Remdesivir 100 MG in NA CHLORIDE 0.9% 250 ML IV SCH (08:07)
[2020-08-13] MEDS: CEFTRIAXONE/SWI 1gm 1 GM/10 ML SYR IV SCH (16:54)
--- NOTE | 2020-08-13 17:28 | P.PN ---
Subjective Date of Service: 08/13/20 Chief Complaint: covid pneumonia, CELESTE, UTI Patient denies shortness of breath. She is tolerating room air. She has no new complaint except intermittent back pain which she attributes to bed discomfort. Physical Examination - Vital Signs Temperature: 97.1 F Blood Pressure: 124/63 Pulse: 55 Respirations: 18 Pulse Ox (%): 94 - Physical Exam General: Alert, In no apparent distress Neck: Supple Respiratory: Other (Nonlabored breathing) Cardiovascular: No edema, Regular rate/rhythm Gastrointestinal: Soft and benign, Non-distended Integumentary: No rashes Neurological: Other (No focal motor deficit.) Other Physical/Emotional Findings: P.E. not done d/t covid isolation Assessment And Plan - Current Problems (Diagnosis) (1) CELESTE (acute kidney injury) Current Visit: Yes Status: Acute (2) Elevated d-dimer Current Visit: Yes Status: Acute (3) Pneumonia due to COVID-19 virus Current Visit: Yes Status: Acute (4) Strep pharyngitis Current Visit: Yes Status: Acute (5) UTI (urinary tract infection) Current Visit: Yes Status: Acute Qualifiers: Urinary tract infection type: site unspecified Hematuria presence: without hematuria Qualified Code(s): N39.0 - Urinary tract infection, site not specified - Plan Patient treated briefly with IV fluid. Serum creatinine has significantly improved. Now Cr is 1.55. IV fluid discontinued. Urine culture is growing Klebsiella oxytoca sensitive to Rocephin. Patient to complete 3 days of IV Rocephin. Pulmonary is following. Patient started on Remdesivir. She will complete Remdesivir tomorrow. Continue IV steroid Continue Eliquis. Patient is on zinc, thiamine, vitamin-C and vitamin-D. Nephrology is following. Physician Review: Patient Assessed, Agree with Above Assessment and Plan Physician Review Additional Text: CELESTE COVID Pneumonia plan: IV steroid Vitamin supplementation Consult to pulmonary Consulting nephrology Monitor renal function.
[2020-08-14 08:09] LABS: Albumin 2.3 g/dL (3.4-5.0); Bilirubin Direct 0.3 mg/dL (0-0.2); Bilirubin Total 0.5 mg/dL (0.2-1.0); Potassium 4.3 mmol/L (3.5-5.1); Protein, Total 7.3 g/dL (6.4-8.2)
[2020-08-14] MEDS: PENTOXIFYLLINE ER 400 MG TAB PO SCH ×2 (09:18→20:26)
[2020-08-14] MEDS: FAMOTIDINE 20 MG TAB PO SCH (09:18)
[2020-08-14] MEDS: Remdesivir 100 MG in NA CHLORIDE 0.9% 250 ML IV SCH (09:18)
[2020-08-14] MEDS: THIAMINE HCL 100 MG TABLET PO SCH (09:19)
[2020-08-14] MEDS: ZINC SULFATE 220 MG CAP PO SCH (09:19)
[2020-08-14] MEDS: VITAMIN D 1000 UNIT TAB PO SCH (09:19)
[2020-08-14] MEDS: ASCORBIC ACID 500 MG TABLET PO SCH ×4 (09:19→20:26)
[2020-08-14] MEDS: APIXABAN 5 MG TABLET PO SCH ×2 (09:19→20:26)
[2020-08-14] MEDS: METHYLPREDNISOLONE 125 MG INJ IV SCH ×2 (09:20→20:26)
[2020-08-14] MEDS: CIPROFLOXACIN HCL 500 MG TAB PO SCH ×2 (09:22→20:26)
--- NOTE | 2020-08-14 14:36 | P.PN ---
Subjective Date of Service: 08/14/20 Chief Complaint: covid pneumonia, CELESTE, UTI Patient denies shortness of breath. She is tolerating room air. Physical Examination - Vital Signs Temperature: 97.5 F Blood Pressure: 107/58 Pulse: 62 Respirations: 20 Pulse Ox (%): 95 - Physical Exam Neck: JVD not distended Respiratory: Other (Nonlabored breathing.) Cardiovascular: No edema, Regular rate/rhythm, Normal S1 S2 Gastrointestinal: Soft and benign, Non-distended Musculoskeletal: No swelling Integumentary: No rashes Neurological: Normal strength at 5/5 x4 extr Other Physical/Emotional Findings: P.E. not done d/t covid isolation - Studies Microbiology Data (last 24 hrs): 08/10/20 20:40 Clean Catch Urine [place] Count - Final >100,000 CFU/ML. 08/10/20 20:40 Clean Catch Urine - Final Escherichia Coli Klebsiella Oxytoca Assessment And Plan - Current Problems (Diagnosis) (1) CELESTE (acute kidney injury) Current Visit: Yes Status: Acute (2) Elevated d-dimer Current Visit: Yes Status: Acute (3) Pneumonia due to COVID-19 virus Current Visit: Yes Status: Acute (4) Strep pharyngitis Current Visit: Yes Status: Acute (5) UTI (urinary tract infection) Current Visit: Yes Status: Acute Qualifiers: Urinary tract infection type: site unspecified Hematuria presence: without hematuria Qualified Code(s): N39.0 - Urinary tract infection, site not sp ecified - Plan Clinically stable. Acute renal failure resolved. IV fluid discontinued. Urine culture is growing Klebsiella oxytoca sensitive to Rocephin. Patient completed 3 days of Rocephin. Pulmonary is following. Patient started on Remdesivir. She will complete Remdesivir tomorrow. Continue IV steroid Continue Eliquis. Patient is on zinc, thiamine, vitamin-C and vitamin-D. Physician Review: Patient Assessed, Agree with Above Assessment and Plan Physician Review Additional Text: CELESTE COVID Pneumonia plan: IV steroid Vitamin supplementation Consult to pulmonary Consulting nephrology Monitor renal function.
--- NOTE | 2020-08-14 16:09 | P.PN ---
Subjective Date of Service: 08/14/20 Chief Complaint: covid pneumonia, CELESTE, UTI Subjective Pt with COVID 19, had CELESTE , Cr normalized on IVF Today no overnight events Cr stable to complete remdisiver by tomorrow Physical exam deferred to hospitalist due to COVID 19 pandemic # CELESTE likely 2/2 prerenal state + ATN/sepsis resolved [place] po fluid intake Monitor renal panel + I&O COVID 19 pneumonia to complete remdisiver by tomorrow # Klebsiella UTI cont Abx total time spent 35min Physical Examination - Vital Signs Temperature: 97.5 F Blood Pressure: 107/58 Pulse: 62 Respirations: 20 Pulse Ox (%): 95 - Physical Exam Other Physical/Emotional Findings: P.E. not done d/t covid isolation - Studies Microbiology Data (last 24 hrs): 08/10/20 20:40 Clean Catch Urine [place] Count - Final >100,000 CFU/ML. 08/10/20 20:40 Clean Catch Urine - Final Escherichia Coli Klebsiella Oxytoca Assessment And Plan Physician Review: Patient Assessed, Agree with Above Assessment and Plan Physician Review Additional Text: CELESTE COVID Pneumonia plan: IV steroid Vitamin supplementation Consult to pulmonary Consulting nephrology Monitor renal function.
[2020-08-14 21:21] VITALS: O2SAT 96
[2020-08-15 07:45] LABS: Albumin 2.3 g/dL (3.4-5.0); Bilirubin Direct 0.2 mg/dL (0-0.2); Bilirubin Total 0.5 mg/dL (0.2-1.0); Protein, Total 6.9 g/dL (6.4-8.2)
[2020-08-15] MEDS: FAMOTIDINE 20 MG TAB PO SCH (09:00)
--- NOTE | 2020-08-15 09:56 | P.PN ---
Subjective Date of Service: 08/15/20 Chief Complaint: covid pneumonia, CELESTE, UTI Subjective Pt with COVID 19, had CELESTE , Cr normalized on IVF Today no overnight events Cr stable to complete remdisiver today cleared for discharge from nephrology point of view Physical exam deferred to hospitalist due to COVID 19 pandemic # CELESTE likely 2/2 prerenal state + ATN/sepsis resolved [place] po fluid intake Monitor renal panel + I&O COVID 19 pneumonia to complete remdisiver by tomorrow # Klebsiella UTI cont Abx total time spent 35min Physical Examination - Vital Signs Temperature: 97.0 F Blood Pressure: 128/64 Pulse: 70 Respirations: 18 Pulse Ox (%): 95 - Physical Exam Other Physical/Emotional Findings: P.E. not done d/t covid isolation - Studies Microbiology Data (last 24 hrs): 08/10/20 20:40 Clean Catch Urine [place] Count - Final >100,000 CFU/ML. 08/10/20 20:40 Clean Catch Urine - Final Escherichia Coli Klebsiella Oxytoca Assessment And Plan Physician Review: Patient Assessed, Agree with Above Assessment and Plan
[2020-08-15] MEDS: CIPROFLOXACIN HCL 500 MG TAB PO SCH (10:16)
[2020-08-15] MEDS: VITAMIN D 1000 UNIT TAB PO SCH (10:16)
[2020-08-15] MEDS: METHYLPREDNISOLONE 125 MG INJ IV SCH (10:16)
[2020-08-15] MEDS: ASCORBIC ACID 500 MG TABLET PO SCH ×2 (10:16→12:45)
[2020-08-15] MEDS: APIXABAN 5 MG TABLET PO SCH (10:17)
[2020-08-15] MEDS: THIAMINE HCL 100 MG TABLET PO SCH (10:17)
[2020-08-15] MEDS: Remdesivir 100 MG in NA CHLORIDE 0.9% 250 ML IV SCH (10:17)
[2020-08-15] MEDS: ZINC SULFATE 220 MG CAP PO SCH (10:17)
[2020-08-15] MEDS: PENTOXIFYLLINE ER 400 MG TAB PO SCH (10:19)
[2020-08-15] MEDS: Oxycodone HCl/Acetaminophen 1 TAB TAB PO PRN (13:53)
--- NOTE | 2020-08-15 15:44 | P.DS ---
Admission Date: 08/10/20 Discharge Date: 08/15/20 Disposition: ROUTINE DISCHARGE Discharge Condition: FAIR Reason for Admission: covid pneumonia, CELESTE, UTI - Problems (1) CELESTE (acute kidney injury) Current Visit: Yes Status: Acute (2) Elevated d-dimer Current Visit: Yes Status: Acute (3) Pneumonia due to COVID-19 virus Current Visit: Yes Status: Acute (4) Strep pharyngitis Current Visit: Yes Status: Acute (5) UTI (urinary tract infection) Current Visit: Yes Status: Acute Qualifiers: Urinary tract infection type: site unspecified Hematuria presence: without hematuria Qualified Code(s): N39.0 - Urinary tract infection, site not specified Brief History of Present Illness: 19 yo F with no known past medical history presented to the emergency department with a complaint of abdominal pain, nausea and vomiting and diarrhea. Patient tested positive COVID the week prior. She also reported night sweats, cough, SOB, wheezing, polyuria, flank pain. She denied dysuria, hemoptysis. WBC 17.6. D dimer 3705. Na 133. BUN 30. Cr 2.4. GFR 26. lactic acid 2.7. CRP 344. Procal 7.04. Tbili 2.6. AST 42. T protein 9.8. Albumin 3.1. Strep positive. Urine blood 3+, leukocyte 3+, RBC 5-10, WBC 5-10, Bacteria loaded, protein 3+. Patient was admitted for further management. Hospital Course: Patient admitted to the medical floor and aggressively hydrated with IV fluid. Nephrology was consulted to assist with management. She was diagnosed with acute renal failure which resolved with IV hydration. Her urine culture grew E. coli and Klebsiella oxytoca. Patient completed 5 days of IV Rocephin for the UTI. She did not experience any vomiting or diarrhea or abdominal pain during the hospital stay. She also tolerated room air with good oxygen saturation and basically asymptomatic from the COVID infection. She completed Remdesivir therapy. Patient has clinically improved, acute renal failure has resolved. Patient is discharged with vitamin supplementation and oral steroid to continue treatment for the COVID infection. Vital Signs/Physical Exam: Temp Pulse Resp BP Pulse Ox 97.4 F 76 18 125/72 94 08/15/20 12:00 08/15/20 12:00 08/15/20 14:53 08/15/20 12:00 08/15/20 14:53 General: Alert, In no apparent distress, Obese Respiratory: Other (Nonlabored breathing) Cardiovascular: No edema, Regular rate/rhythm, Normal S1 S2 Gastrointestinal: Soft and benign, Non-distended Musculoskeletal: No swelling Integumentary: No rashes Neurological: Normal strength at 5/5 x4 extr Other Physical/Emotional Findings: P.E. not done d/t covid isolation Laboratory Data at Discharge: WBC 7.50 K/uL (4.3-10.9) D 08/12/20 03:02 Hgb 10.2 g/dL (12.0-15.0) L 08/12/20 03:02 Hct 29.0 % (36.0-45.0) L 08/12/20 03:02 Plt Count 148 K/uL (152-406) L 08/12/20 03:02 PT 14.8 SECONDS (9.5-12.5) H 08/10/20 18:41 INR 1.28 08/10/20 18:41 APTT 34.1 SECONDS (24.3-36.9) 08/10/20 18:41 Sodium 141 mmol/L (136-145) 08/14/20 07:37 Potassium 4.3 mmol/L (3.5-5.1) 08/14/20 07:37 BUN 39 mg/dL (7-18) H 08/14/20 07:37 Creatinine 1.08 mg/dL (0.55-1.3) 08/14/20 07:37 Glucose 193 mg/dL (74-106) H 08/14/20 07:37 Uric Acid 7.9 mg/dL (2.6-6.0) H D 08/14/20 09:10 Phosphorus 3.3 mg/dL (2.5-4.9) 08/13/20 03:20 Magnesium 2.8 mg/dL (1.8-2.4) H 08/13/20 03:20 Total Bilirubin 0.5 mg/dL (0.2-1.0) 08/15/20 07:01 AST 20 U/L (15-37) 08/15/20 07:01 ALT 52 U/L (12-78) 08/15/20 07:01 Alkaline Phosphatase 64 U/L (45-117) 08/15/20 07:01 Troponin I Cancelled 08/11/20 05:36 Lipase 100 U/L (64-393) 08/10/20 17:10 Home Medications: Apixaban [Eliquis] 5 mg PO BID #60 tablet 08/15/20 Ascorbic Acid [Vitamin C*] 1,000 mg PO TID #180 tablet 08/15/20 Benzonatate [Tessalon Perle*] 100 mg PO TID PRN #30 cap 08/15/20 Cholecalciferol (Vitamin D3) [Vitamin D 1000 Iu Tab*] 4,000 unit PO DAILY #120 tab 08/15/20 Famotidine [Pepcid*] 20 mg PO DAILY #30 tab 08/15/20 Thiamine HCl [Vitamin B-1*] 200 mg PO DAILY #30 tablet 08/15/20 Zinc Sulfate [Zinc Sulfate*] 220 mg PO DAILY #30 cap 08/15/20 predniSONE [Deltasone] 20 mg PO DAILY #7 tab 08/15/20 New Medications: Apixaban [Eliquis] 5 mg PO BID #60 tablet Famotidine [Pepcid*] 20 mg PO DAILY #30 tab predniSONE [Deltasone] 20 mg PO DAILY #7 tab Benzonatate [Tessalon Perle*] 100 mg PO TID PRN #30 cap PRN Reason: Cough Thiamine HCl [Vitamin B-1*] 200 mg PO DAILY #30 tablet Ascorbic Acid [Vitamin C*] 1,000 mg PO TID #180 tablet Cholecalciferol (Vitamin D3) [Vitamin D 1000 Iu Tab*] 4,000 unit PO DAILY #120 tab Zinc Sulfate [Zinc Sulfate*] 220 mg PO DAILY #30 cap Diet: AHA Activity: Ad cherelle Followup: NONE,NONE [Primary Care Provider] - 1-2 Weeks Time spent managing pt's care (in minutes): 33
[2020-08-15 16:59] VITALS: BP 124/64; TEMP 97.1
== END 2020-08-15 16:45 | disposition home or self-care (01) | DRG 871 ==
LOC: ER 11:06 → 4TH 21:23
PROVIDERS: ADMIT Internal Medicine; ATTEND Internal Medicine
PROC: XW033E5 Introduction of Remdesivir Anti-infective into Peripheral Vein, Percutaneous Approach, New Technology Group 5 (ICD-10-PCS; principal; 2020-08-11)
PROC: 8E0ZXY6 Isolation (ICD-10-PCS; 2020-08-11)
DX: A41.51 Sepsis due to Escherichia coli [E. coli] (principal); U07.1 COVID-19; J12.82 Pneumonia due to coronavirus disease 2019; N17.0 Acute kidney failure with tubular necrosis; N39.0 Urinary tract infection, site not specified; Z68.44 Body mass index [BMI] 60.0-69.9, adult; J02.0 Streptococcal pharyngitis; E79.0 Hyperuricemia without signs of inflammatory arthritis and tophaceous disease; E87.6 Hypokalemia; E66.9 Obesity, unspecified; B96.1 Klebsiella pneumoniae [K. pneumoniae] as the cause of diseases classified elsewhere; Z79.01 Long term (current) use of anticoagulants; Z79.52 Long term (current) use of systemic steroids; Z79.899 Other long term (current) drug therapy
CPT/HCPCS: 0240U; 36415; 71045; 76700; 76857; 80048; 80053; 80076; 81003; 81015; 82550; 82570; 82728; 82947; 83605; 83690; 83735; 83880; 83935; 84100; 84132; 84145; 84156; 84300; 84439; 84443; 84484; 84550; 84703; 85025; 85379; 85610; 85730; 86140; 87040; 87077; 87081; 87086; 87088; 87186; 87205; 93005; 94760; 96361; 96365; 96375; 99285; J0456; J0696; J1940; J2270; J2405; J2550; J2930; J7030; J7050

== ENCOUNTER 2020-10-21 10:35 | Emergency (ER) | payer SELFPAY ==
[2020-10-21 12:00] LABS: Urine Blood 2+ (Negative); Urine Glucose Negative (Negative); Urine Protein Negative (Negative); Urine Specific Gravity 1.015 (1.005-1.030); Urine pH 8.5 (5.0-7.0)
[2020-10-21 12:43] LABS: Urine Specific Gravity/Preg 1.015 (1.005-1.030)
--- NOTE | 2020-10-21 14:40 | RAD REPORT ---
EXAM DESCRIPTION: US - Transvaginal Study Probe - 10/21/2020 2:08 pm CLINICAL HISTORY: LLQ pain Pelvic pain. COMPARISON: Urinary Bladder dated 08/11/2020; Abdomen Exam Complete dated 08/10/2020 FINDINGS: Quality of the submitted ultrasound is quite limited. In the right adnexa a cystic lesion is present appearing to be associated with the right ovary measur ing 5.2 x 4.5 cm. This may be a right ovarian cyst. Possible left ovary is noted in the left adnexa measuring 7.6 x 5.0 cm. Normal flow is seen to the st ructure. Superior to this region in amorphous fluid collection is present as well. No significant pelvic ascites. IMPRESSION: Very limited study is submitted with evidence of nonspecific bilateral adnexal cystic le sions. No evidence of ovarian torsion.
--- NOTE | 2020-10-21 14:54 | ER ---
Nurse's Notes [facility] Name: Zayda Wharton Age: 20 yrs Sex: Female : 2000 Arrival Date: 10/21/2020 Time: 10:37 Bed 25 Private MD: Diagnosis: Left Flank Pain;Urinary Tract Infection Presentation: 10/21 10:44 Chief complaint: Patient states: i recently had a little operation for an ovarian cyst tw2 and i think i am getting it on the other one because i am having the same symptoms. i have been having this pain for a while and i just cant take it anymore. it is hurting on my LEFT side this time. at least 2 weeks with the pain. Coronavirus screen: At this time, the client does not indicate any symptoms associated with coronavirus-19. Ebola Screen: Patient denies travel to an Ebola-affected area in the 21 days before illness onset. Initial Sepsis Screen: Does the patient meet any 2 criteria? No. Patient's initial sepsis screen is negative. Does the patient have a suspected source of infection? No. Patient's initial sepsis screen is negative. Risk Assessment: Do you want to hurt yourself or someone else? Patient reports no desire to harm self or others. Onset of symptoms was October 21, 2020. 10:44 Method Of Arrival: Ambulatory tw2 10:44 Acuity: YECENIA 3 tw2 Triage Assessment: 10:46 General: Appears in no apparent distress. obese, Behavior is calm, cooperative, tw2 appropriate for age. Pain: Complains of pain in left lower quadrant Pain radiates to back. GI: Reports cramping, diarrhea, since today. 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 - Social history:: Smoking status: . Screenin:22 Abuse screen: Denies threats or abuse. Nutritional screening: No deficits noted. ap3 Tuberculosis screening: No symptoms or risk factors identified. Fall Risk None identified. Assessment: 12:20 General: Appears in no apparent distress. comfortable, Behavior is calm, cooperative, ap3 appropriate for age. Pain: Complains of pain in left lower quadrant Pain does not radiate. Pain currently is 4 out of 10 on a pain scale. at worst was 7 out of 10 on a pain scale. Neuro: Level of Consciousness is awake, alert, obeys commands, Oriented to person, place, time, situation. Cardiovascular: Capillary refill < 3 seconds. Respiratory: Airway is patent Respiratory effort is even, unlabored, Respiratory pattern is regular, symmetrical, Breath sounds are clear bilaterally. Denies shortness of breath. GI: Bowel sounds present X 4 quads. Abd is soft X 4 quads Abdomen is tender to palpation in left upper quadrant and left lower quadrant. : Reports burning with urination, since today Denies vaginal bleeding. Vital Signs: 10:44 BP 143 / 81; Pulse 108; Resp 18; Temp 98.5; Pulse Ox 96% on R/A; Weight 155.58 kg (R); tw2 Height 5 ft. 1 in. (154.94 cm); Pain 6/10; 12:23 BP 127 / 67; Pulse 93; Resp 17; Pulse Ox 99% on R/A; ap3 14:18 BP 135 / 54; Pulse 95; Resp 16; Pulse Ox 99% on R/A; ap3 10:44 Body Mass Index 64.81 (155.58 kg, 154.94 cm) tw2 ED Course: 10:37 Patient arrived in ED. am2 10:46 Triage completed. tw2 10:47 Arm band placed on. tw2 12:04 Jj Toscano MD is Attending Physician. kdr 12:11 Fallon Craft, NARENDRA is Primary Nurse. ap3 12:23 Patient has correct armband on for positive identification. Call light in reach. Side ap3 rails up X 1. Pulse ox on. NIBP on. Door closed. Noise minimized. 13:01 Patient taken to ultrasound. via wheelchair. ap3 14:08 US Transvaginal Study (Probe) In Process Unspecified. EDMS 14:15 Patient moved back from ultrasound. ap3 15:07 No provider procedures requiring assistance completed. Patient did not have IV access ap3 during this emergency room visit. Administered Medications: 15:07 Drug: Macrobid (nitrofurantoin) 100 mg Route: PO; ap3 15:07 Follow up: Response: No adverse reaction ap3 Outcome: 14:54 Discharge ordered by . kdr 15:07 Discharged to home ambulatory. ap3 15:07 Condition: good 15:07 Discharge instructions given to patient, Instructed on discharge instructions, follow up and referral plans. medication usage, Demonstrated understanding of instructions, follow-up care, medications, Prescriptions given X 1. 15:08 Patient left the ED. ap3 Signatures: Dispatcher [employer] EDMS Jj Toscano MD MD kdr Wise, Tara RN RN nina2 Fallon Hernandez am2 Fallon Craft RN RN ap3
--- NOTE | 2020-10-21 14:55 | EDPHYS ---
Physician Documentation [facility] Name: Zayda Wharton Age: 20 yrs Sex: Female : 2000 Arrival Date: 10/21/2020 Time: 10:37 Bed 25 Private MD: ED Physician Jj Toscano HPI: 10/21 18:37 This 20 yrs old Female presents to ER via Ambulatory with complaints of kdr Abdominal Pain - llq, Low Back Pain. 18:37 The patient presents with pain that is acute, with no known mechanism of injury. The kdr symptoms are located in the low back. The pain does not radiate. The problem was sustained from unknown cause. Onset: The symptoms/episode began/occurred acutely. Modifying factors: The patient symptoms are alleviated by nothing, the patient symptoms are aggravated by any movement. Associated signs and symptoms: The patient has no apparent associated signs or symptoms. Severity of symptoms: At their worst the symptoms were mild, moderate, just prior to arrival. The patient has not experienced similar symptoms in the past. 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 - Social history:: Smoking status: . ROS: 18:37 Constitutional: Negative for fever, chills, and weight loss, Eyes: Negative for injury, kdr pain, redness, and discharge, Neck: Negative for injury, pain, and swelling, Cardiovascular: Negative for chest pain, palpitations, and edema, Respiratory: Negative for shortness of breath, cough, wheezing, and pleuritic chest pain, : Negative for injury, bleeding, discharge, and swelling, MS/Extremity: Negative for injury and deformity, Skin: Negative for injury, rash, and discoloration, Neuro: Negative for headache, weakness, numbness, tingling, and seizure activity. 18:37 Abdomen/GI: Positive for abdominal pain, Flank. Exam: 18:37 Constitutional: This is a well developed, well nourished patient who is awake, alert, kdr and in no acute distress. Head/Face: Normocephalic, atraumatic. Eyes: Pupils equal round and reactive to light, extra-ocular motions intact. Lids and lashes normal. Conjunctiva and sclera are non-icteric and not injected. Cornea within normal limits. Periorbital areas with no swelling, redness, or edema. Neck: Trachea midline, no thyromegaly or masses palpated, and no cervical lymphadenopathy. Supple, full range of motion without nuchal rigidity, or vertebral point tenderness. No Meningismus. Chest/axilla: Normal chest wall appearance and motion. Nontender with no deformity. No lesions are appreciated. Cardiovascular: Regular rate and rhythm with a normal S1 and S2. No gallops, murmurs, or rubs. Normal PMI, no JVD. No pulse deficits. Respiratory: Lungs have equal breath sounds bilaterally, clear to auscultation and percussion. No rales, rhonchi or wheezes noted. No increased work of breathing, no retractions or nasal flaring. Abdomen/GI: Soft, non-tender, with normal bowel sounds. No distension or tympany. No guarding or rebound. No evidence of tenderness throughout. Back: No spinal tenderness. No costovertebral tenderness. Full range of motion. Skin: Warm, dry with normal turgor. Normal color with no rashes, no lesions, and no evidence of cellulitis. MS/ Extremity: Pulses equal, no cyanosis. Neurovascular intact. Full, normal range of motion. Neuro: Awake and alert, GCS 15, oriented to person, place, time, and situation. Cranial nerves II-XII grossly intact. Motor strength 5/5 in all extremities. Sensory grossly intact. Cerebellar exam normal. Normal gait. Psych: Awake, alert, with orientation to person, place and time. Behavior, mood, and affect are within normal limits. Vital Signs: 10:44 BP 143 / 81; Pulse 108; Resp 18; Temp 98.5; Pulse Ox 96% on R/A; Weight 155.58 kg (R); tw2 Height 5 ft. 1 in. (154.94 cm); Pain 6/10; 12:23 BP 127 / 67; Pulse 93; Resp 17; Pulse Ox 99% on R/A; ap3 14:18 BP 135 / 54; Pulse 95; Resp 16; Pulse Ox 99% on R/A; ap3 10:44 Body Mass Index 64.81 (155.58 kg, 154.94 cm) tw2 MDM: 14:54 Patient medically screened. kdr 18:37 Data reviewed: vital signs, nurses notes, lab test result(s), radiologic studies. kdr Counseling: I had a detailed discussion with the patient and/or guardian regarding: the historical points, exam findings, and any diagnostic results supporting the discharge/admit diagnosis, lab results, radiology results, the need for outpatient follow up. 10/21 12:00 Order name: Urine Dipstick-Ancillary; Complete Time: 14:05 EDID 10/21 12:19 Order name: Urine --Ancillary (enter results); Complete Time: 14:05 bd 10/21 12:22 Order name: US Transvaginal Study (Probe); Complete Time: 14:50 kdr Administered Medications: 15:07 Drug: Macrobid (nitrofurantoin) 100 mg Route: PO; ap3 15:07 Follow up: Response: No adverse reaction ap3 Disposition: 10/21/20 14:54 Discharged to Home. Impression: Left Flank Pain, Urinary Tract Infection. - Condition is Stable. - Discharge Instructions: Flank Pain, [id number]. - Prescriptions for Macrobid 100 mg Oral Capsule - take 1 capsule by ORAL route every 12 hours for 7 days; 14 capsule. - Medication Reconciliation Form, Thank You Letter, Antibiotic Education form. - Follow up: Private Physician; When: 2 - 3 days; Reason: If symptoms return, Further diagnostic work-up, Recheck today's complaints, Continuance of care, Re-evaluation by your physician. - Problem is new. - Symptoms have improved. Signatures: Dispatcher [employer] [facility] Jj Toscano MD MD kdr Wise, Tara, RN RN tw2 Fallon Craft RN RN ap3 Corrections: (The following items were deleted from the chart) 15:08 14:54 10/21/2020 14:54 Discharged to Home. Impression: Left Flank Pain; Urinary Tract ap3 Infection. Condition is Stable. Forms are Medication Reconciliation Form, Thank You Letter, Antibiotic Education, Prescription Opioid Use. Follow up: Private Physician; When: 2 - 3 days; Reason: If symptoms return, Further diagnostic work-up, Recheck today's complaints, Continuance of care, Re-evaluation by your physician. Problem is new. Symptoms have improved. kdr
[2020-10-21] MEDS ORDERED: NITROFURAN MACRO 100 MG CAP PO ONE (15:25)
[2020-10-21 15:39] VITALS: TEMP 98.5
[2020-10-21 15:41] VITALS: O2SAT 99
[2020-10-21 15:45] VITALS: BP 135/54
== END 2020-10-21 15:08 | disposition home or self-care (01) ==
LOC: ER 10:35
DX: N39.0 Urinary tract infection, site not specified (principal)
CPT/HCPCS: 76830; 81003; 81025

== ENCOUNTER 2021-08-02 16:14 | Emergency (ER) | payer SELFPAY ==
--- OUTSIDE RECORDS SUMMARY | 2021-08-02 16:17 | XMS REPORT | Continuity of Care Document ---
:2000 Author Organization [facility] t Address [address] [place] [address] [address]. [address] [place] [address] Care Team Providers Name Role Phone Daniel GARCIA, R Attending Clinician Jorje Palma MD Attending Clinician Jama Sanchez MD Admitting Clinician Payers Payer Name Policy Type Policy Number Effective Date Expiration Date S ource Problems Condition Condition Condition Status Onset Resolution Last Treating Co mments Source Name Details Category Date Date Treatment Clinician Date Pelvic Pelvic Disease Active Univers pain pain 10-25 ity of 00:00: [place] 00 [facility] Allergies, Adverse Reactions, Alerts Allergy Allergy Status Severity Reaction(s) Onset Inactive Treating Comm ents Source Name Type Date Date Clinician NO KNOWN Drug Active Univers ALLERGIE Class ity of S [facility] Social History Social Habit Start Date Stop Date Quantity Comments Source Exposure to Not sure [facility] SARS-CoV-2 (event) Medica l [place] Tobacco use and 2020-10-25 2020-10-25 Never used [facility] exposure 00:00:00 00:00:00 [facility] Sex Assigned At [birth year] [facility] 00:00:00 00:00:00 [facility] Smoking Status Start Date Stop Date Source Never smoker [facility] Medications Ordered Filled Start Stop Current Ordering Indication Dosage Frequency Signature Comments Components Source Medication Medication Date Date Medication? Clinician (SIG) Name Name ibuprofen Yes 800mg 800 mg, Univ ers (IBU) 10-26 Oral, ity of tablet 800 16:15: Q6[place]PRN[place] 03 Starting Medical e [place] 10/26/20 at 1115, Until Discontinu ed, Routine, Pain (scale 4-6) simethicone Yes 160mg 160 mg, Un jian (GAS RELIEF 10-26 Oral, ity of (SIMETHICON 14:00: PC[place]HS[place] E[place] 00 First dose Medical chewable on [place] tablet 160 10/26/20 at mg 0900, Until Discontinu ed, Routine docusate Yes 100mg 100 mg, Unive rs (COLACE) 10-26 Oral, ity of capsule 100 13:00: Q12H, [place] mg 00 First dose Medical on Sun Branch 10/26/20 at 0800, Until Discontinu ed, Routine acetaminoph 2020- No 650mg 650 mg, U nivers en 10-26 Oral, ity of (TYLENOL) 07:30: 06:45 ONCE, 1 [place] tablet 650 00 :00 dose, [facility] anine mg 10/26/20 at Branch 0230, Routine D5W-LR IV Yes 1000mL at 125 Univ ers infusion 622 mL/hr, IV ity of 1,000 mL 06:15: Infusion[place] 00 CONTINUOUS Medical , Starting Branch Sun10/26/20 at 0115, Until Discontinu ed, Routine FENTanyl PF 2020- No 50ug 50 mcg, Un jian (SUBLIMAZE 10-26 Slow IV ity o f (PF)) 03:45: 02:43 Push, [place] injection 00 :00 ONCE, 1 Medical 50 mcg dose, [facility] 10/25/20 at 2245, STAT norgestimat Yes [id number] 1{tbl} Take 1 Univers e-ethinyl 6-22 tablet by ity o f estradioL 00:00: mouth [place] (SPRINTEC) 00 daily. Medical 0.25-35 Branch mg-mcg per tablet ibuprofen Yes [id number] 800mg Take 1 U nivers 800 mg 6-22 tablet by ity of tablet 00:00: mouth [place] 00 every 6 Medical (six) Branch hours as needed for Pain (scale 4-6). norgestimat Yes [id number] 1{tbl} Take 1 Univers e-ethinyl 6-22 tablet by ity o f estradioL 00:00: mouth [place] (SPRINTEC) 00 daily. Medical 0.25-35 Branch mg-mcg per tablet ibuprofen Yes [id number] 800mg Take 1 U nivers 800 mg 10-26 tablet by ity of tablet 00:00: mouth [place] 00 every 6 Medical (six) Branch hours as needed for Pain (scale 4-6). FENTanyl PF 2020- No 50ug 50 mcg, Un jian (SUBLIMAZE 10-26 Slow IV ity o f (PF)) 00:00: 23:00 Push, [place] injection 00 :00 ONCE, 1 Medical 50 mcg dose, [facility] Branch 10/25/20 at 1900, STAT NaCl 0.9% 2020- No 1000mL at 999 Uni vers (NS) bolus 10-25 mL/hr, ity of infusion 23:00: 23:00 1,000 mL, Harsh as 1,000 mL 00 :00 IV Medical Infusion, [place] ONCE, 1 dose, [facility] 10/25/20 at 1800, NATE famotidine 2020- No 20mg 20 mg, IV U nivers (PEPCID 10-25 Piggyback, ity o f (PF)) 23:00: 23:00 ONCE, 1 [place] injection 00 :00 dose, Mon Medic al 20 mg 10/25/20 at Branch 1800, NATE iopamidol 2020- No [id number] 120mL 120 mL, Univers (ISOVUE 10-25 Intravenou ity o f 300-500 mL) 22:35: 22:35 s, ONCE, 1 [place] injection 00 :00 dose, Mon Medic al 120 mL 10/25/20 at Branch 1745, Routine Vital Signs Vital Name Observation Time Observation Value Comments Source Systolic blood 2020-10-27 13:07:00 121 mm[Hg] Univer sity of pressure [facility] Diastolic blood 2020-10-27 13:07:00 69 [facility]Hg[facility] Heart rate 2020-10-27 13:07:00 78 /min [facility] Body temperature 2020-10-27 13:07:00 [facility]5 [facility] saturation in 2020-10-27 13:07:00 98 /min [facility] Arterial blood by [facility] Pulse oximetry Branch Respiratory rate 2020-10-27 10:03:00 20 /min [facility] Body weight 2020-10-25 20:07:00 155.598 kg [facility] Procedures Procedure Date / Time Performing Clinician Source Performed URINE CULTURE 2020-10-26 23:50:00 Lety Crump [facility] US OVARY TORSION 2020-10-26 10:37:34 Sy Eaton [facility] GC & CHLAMYDIA AMPLIFIED 2020-10-26 01:34:00 Lety Crump [facility] ASSAY [facility] COVID-19 (ID NOW RAPID 2020-10-26 00:43:00 Lety Crump [facility] TESTING) Medical [place] LAB ONLY COVID 2020-10-26 00:43:00 Lety Crump [facility] INTERPRETATION [facility] US OVARY TORSION 2020-10-26 00:28:52 Holly Palma [facility] HB ABO GROUPING 2020-10-25 23:47:00 Holly Palma [facility] URINALYSIS 2020-10-25 23:40:00 Holly Palma [facility] ABDOMEN PELVIS W 2020-10-25 22:37:41 Holly Palma [facility] CONTRAST [facility] LIPASE 2020-10-25 21:11:00 Holly Palma [facility] TEST, SERUM 2020-10-25 21:11:00 Holly Palma [facility] HEPATIC FUNCTION PANEL 2020-10-25 21:11:00 Holly Palma [facility] ([id number]) (ALB,T.PRO,BILI Medical [place] T,BU/BC,ALT,AST,ALK PHOS) BASIC METABOLIC PANEL 2020-10-25 21:11:00 Holly Palma [facility] (NA, K, CL, CO2, GLUCOSE, Medica l Branch BUN, CREATININE, CA) CBC WITH DIFF 2020-10-25 21:11:00 Holly Palma [facility] EXTRA TUBE LT. GREEN 2020-10-25 21:11:00 Holly Palma [facility] CONSENT/REFUSAL FOR 2020-10-25 20:06:57 Doctor Unassigned, No Un [facility] DIAGNOSIS AND TREATMENT Name Medical [place] Encounters Start End Encounter Admission Attending Care Care Encounter Source Date/Time Date/Time Type Type Clinicians Facility Department ID 2020-12-02 2020-12-02 Letter Harini Sanchez [id number] Univers 00:00:00 00:00:00 (Out) Samara Yun Kristy [id number] [facility] [id number] [place] [id number] [address] 2020-10-25 2020-10-27 Emergency Holly Palma [id number] Univers 15:06:00 12:30:00 Daniel Samara Wagner [id number] [facility] [id number] Harsh as [id number] [address] 2020-10-25 2020-10-25 Emergency X [facility] ERT [id number] Univers 15:03:00 15:03:00 [facility] Results Test Description Test Time Test Comments Results Result Comments Source URINE CULTURE 2020-10-27 16:57:55 Test Item Value Reference Range Interpretation Comme nts URINE CULTURE (test code = 630-4) 10,000 - 100,000 CFU/mL mixed aer obic organisms - suggests endogenous microbial contamination [facility] CHLAMYDIA AMPLIFIED [id number] 02:39:44 Test Item Value Reference Range Interpretation Comments C. trachomatis Nucleic Negative Negative Acid (test code = 64380-7) N. gonorrhoeae Nucleic Negative Negative Acid (test code = 49046-8) MARTA (test code = MARTA) Reliable results are dependent on adequate specimen collection. ? A positive result obtained from a patient after therapeutic treatment cannot be interpreted as indicating the presence of viable organisms. ?For patients on whom a false positive result may have adverse psychosocial impact, retesting is advised. Indeterminate: Unable to generate a valid test result on this specimen. ?Please submit a new specimen for repeat testing if clinically indicated. Chlamydia trachomatis/Neisseria gonorrhoeae nucleic acid amplification testing (NAAT) has not been validated for medico-legal specimens (sexual abuse in nano-pubertal and pre-pubertal children, sexual assault, and legal cases). ?Culture for Chlamydia trachomatis and/or Neisseria gonorrhoeae from clinically appropriate sites is the method of choice in these cases. ? Results from this testing should be interpreted in conjunction with other laboratory and clinical data available to the clinician. Lab Interpretation Normal (test code = 55740-9) [facility] COVID [id number] 01:36:28COVID DMT InterpretationInterpretation/Recommendations: Molecular NAAT Tests for Active Infection with the SARS-CoV-2 Virus: The patient has currently tested negative for the SARS-CoV-2 virus that causes COVID-19 illness. This most likely indicates that the patient does not have an active infection with the SARS-CoV-2 virus. However, infection is not completely ruled out as the false negative rate for molecular NAAT testing using a nasopharyngeal sample can be up to 30%, mostly dependent on the timing of sample collection in relation to illness onset and any deficiencies in sampling techniques. If the patient has symptoms concerning for COVID-19 illness, a repeat NAAT test (PCR, Rapid ID Now, etc.) should be performed, at which time the SARS-CoV-2 virus - if present - may have reached a detectable viral load (usually peaking by the end of the first week of symptoms). Tests for IgM and/or IgGAntibodies to the SARS-CoV-2 Virus: If the patient develops COVID-19 illness in the future, testingfor IgM and IgG antibodies approximately 3 weeks after illness onset will likely indicate if the patient has produced antibodies to the SARS-CoV-2 virus. However, some patients may take longer to develop detectable antibodies, while some patients who were infected with SARS-CoV-2 may never develop antibodies. While antibodies to SARS-CoV-2 may provide some degree of immunity, at this time the strength and duration of the antibody response is unknown. ? ? Interpretation Result Comments:These interpretation comments are basedupon all COVID-19 testing the patient has had at [facility], including molecular NAAT testing (more commonly known as PCR testing and Rapid ID Now testing) and antibody testing. It does not take into accountany testing that a patient has had outside of the [facility] medical record. [facility] LABORATORY SERVICESCOVID ItyzrtuZQPC-PkG-2 Rapid ID NOW (no units) ? ? Date ? Value ? 10/25/2020 ? Not Detected ? [facility]OR[facility] OVARY [id number] 16:29:34 1. ?Complex left adnexal septated fluid collection extending to mivdhg-ao-kfk. Complex right adnexal cystic mass with multiple septation.Overall findings are suggestive of pelvic inflammatory disease versusbilateral ruptured hemorrhagic cysts. 2. ?Obscured right ovary by complex cystic adnexal mass. Normal arterialand venous flow in the left ovary, low suspicious for torsion. Preliminary Report Dictated by Resident: Callie Solorio MD., have reviewed this study and agree with theabove report.EXAM: US OVARY TORSION HISTORY: 20 years -old Female with f/u u/s r/o torsion . LMP = 10/04/2020 TECHNIQUE: Transabdominal and transvaginal ultrasound imaging of the pelviswas performed including color Doppler evaluation. Additionally, spectralDoppler evaluation of the ovaries was performed. Organ Recovery Coordinator images wereobtained for the record. COMPARISON: Pelvic ultrasound 10/25/2020, CT abdomen pelvis with contrast10/25/2020 FINDINGS: Uterus: Limited visualization of the uterus demonstrates normal size measuring 8.0x 2.5 x 4.5 cm. Endometrial thickness measures 7 mm. Nabothian cysts arepresent at the cervix. Right Adnexa:The right ovary is obscured by adnexal mass. Multiseptated cystic structurenoted within the right adnexa measuring 4.2 x 6.9 cm with venous andarterial waveform likely represents the right ovary. Left Adnexa:Ovary: The left ovary measures 4.7 x 2.2 x 2.8 cm. The left ovarydemonstrates multiple follicles/cyst measuring up to ?3 cm cystic. Againnoted tubular left adnexal complex appearing fluid collection with internalseptations extends into the cul-de-sac. Normal arterial and venouswaveforms are observed at the left ovary.Other: None Cul-de-sac: A large amount of complex appearing fluid noted within xxkeki-xn-foc. [facility], Radiant Results Inft User - 10/26/2020 11:30 AM CDT EXAM: US OVARY TORSIONHISTORY: 20 years -old Female with f/u u/s r/o torsion . LMP = 10/04/2020TECHNIQUE: Transabdominal and transvaginal ultrasound imaging of the pelviswas performed including color Doppler evaluation. Additionally, spectralDoppler evaluation of the ovaries was performed. Organ Recovery Coordinator images wereobtained for the record. COMPARISON: Pelvic ultrasound 10/25/2020, CT abdomen pelvis with contrast10/25/2020FINDINGS:Uterus: Limited visualization of the uterus demonstrates normal size measuring 8.0x 2.5 x 4.5 cm. Endometrial thickness measures 7 mm. Nabothian cysts arepresent at the cervix.Right Adnexa:The right ovary is obscured by adnexal mass. Multiseptated cystic structurenoted within the right adnexa measuring 4.2 x 6.9 cm with venous andarterial waveform likely represents the right ovary.Left Adnexa:Ovary: The leftovary measures 4.7 x 2.2 x 2.8 cm. The left ovarydemonstrates multiple follicles/cyst measuring up to 3 cm cystic. Againnoted tubular left adnexal complex appearing fluid collection with internalseptations extends into the cul-de-sac. Normal arterial and venouswaveforms are observed at the left ovary. Other: PlfuNul-mq-awq: A large amount of complex appearing fluid noted within bmmolj-ya-xuk.IMPRESSION1. Complex left adnexal septated fluid collection extending to kzdbuj-rp-hpj. Complex right adnexal cystic mass with multiple septation.Overall findings are suggestive of pelvic inflammatory disease v ersusbilateral ruptured hemorrhagic cysts.2. Obscured right ovary by complex cystic adnexal mass. Normal arterialand venous flow in the left ovary, low suspicious for torsion.Preliminary Report Dictated by Resident: Renee Linares, Callie Gallegos MD., have reviewed this study and agree with theabove report.[facility] OVARY [id number] 01:33:38 1. ?Nonvisualized arterial waveform within the enlarged left ovary withnormal venous waveform, in addition to the large amount of complexappearing fluid within the cul-de-sac, this is suspicious for left ovariantorsion. 2. ?The right ovary is only visualized on the transabdominal imaging anddemonstrates multicystic septated structure measuring up to 8.5 cm. The findings of this study, have been discussed with and acknowledged byHOLLY Dela Cruz W over the phone on 10/25/2020 at 7:56 PM with readback. Preliminary Report Dictated by Resident: Bernard Solorio ?MD Eusebia., have reviewed this study and agree withthe above report.EXAM: US OVARY TORSION HISTORY: 20 years -old Female with eval for oleft ovary . LMP = notprovided TECHNIQUE: Transabdominal and transvaginal ultrasound imaging of the pelviswas performed including color Doppler evaluation. Additionally, spectralDoppler evaluation of the ovaries was performed. Organ Recovery Coordinator images wereobtained for the record. COMPARISON: Same day CT abdomen pelvis with contrast FINDINGS: Limited exam due to patient's body habitus. Uterus: The uterus is normal in size, 9.6 x 3.3 x 5.4 cm. The myometrium ishomogenous. No focal lesion is detected. The endometrium is normal inappearance. Endometrial thickness measures 9.0 mm. Nabothian cysts arepresent at the cervix. Right Adnexa:Ovary: The right ovary is only visualized on transabdominalimaging andmeasures 8.5 x 7.2 x 5.5 cm. Multi cystic septated structure within thepresumed right ovary. Normal arterial and venous waveforms are observed atthe right ovary. Other: None Left Adnexa:Ovary: The left ovary measures 4.5 x 3.8 x 2.7 cm. Cystic structures arenoted within the visualized left ovary. Nonvisualized arterial waveformwith on the venous waveform observed at the left ovary. Other: None Cul-de-sac: Large amount of complex appearing fluid noted within subsoy-vp-qzq and anterior to the uterus. [facility], Radiant Results Inft User - 10/25/2020 8:34 PM CDTFormatting of this note might be d ifferent from the original.EXAM: US OVARY TORSIONHISTORY: 20 years -old Female with eval for oleft ovary . LMP = notprovidedTECHNIQUE: Transabdominal and transvaginal ultrasound imaging of the pelviswas performed including color Doppler evaluation. Additionally, spectralDoppler evaluation of the ovaries was performed. Organ Recovery Coordinator images wereobtained for the record. COMPARISON: Same day CT abdomen pelvis with contrastFINDINGS:Limited exam due to patient's body habitus.Uterus: The uterus is normal in size, 9.6 x 3.3 x 5.4 cm. The myometrium ishomogenous. No focal lesion is detected. The endometrium is normal inappearance. Endometrial thickness measures 9.0 mm. Nabothian cysts arepresent at the cervix.Right Adnexa:Ovary: The right ovary is only visualized on transabdominal imaging andmeasures 8.5x 7.2 x 5.5 cm. Multi cystic septated structure within thepresumed right ovary. Normal arterial and venous waveforms are observed atthe right ovary. Other: NoneLeft Adnexa:Ovary: The left ovary measures 4.5 x 3.8 x 2.7 cm. Cystic structures arenoted within the visualized left ovary. Nonvisualized arterial waveformwith on the venous waveform observed at the left ovary. Other: LjjcKtz-fr-ibt: Large amount of complex appearing fluid noted within arhzms-gl-snk and anterior to the uterus.IMPRESSION1. Non visualized arterial waveform within the enlarged left ovary withnormal venous waveform, in addition to the large amount of complexappearing fluid within the cul-de-sac, this is suspicious for left ovariantorsion.2. The right ovary is only visualized on the transabdominal imaging anddemonstrates multicystic septated structure measuring up to 8.5 cm.The findings of this study, have been discussed withand acknowledged byHOLLY Dela Cruz W over the phone on 10/25/2020 at 7:56 PM with readback. Preliminary Report Dictated by Resident: Bernard Shin MD., have reviewed this study and agree withthe above report.[facility]OVID[facility] (ID NOW RAPID TESTING) 2020-10-26 01:04:36 Test Item Value Reference Range Interpretation Comments SARS-CoV-2 Rapid ID NOW Not Detected Not Detected (test code = 37640-3) MARTA (test code = MARTA) ID NOW COVID-19 Assay is an isothermal nucleic acid amplification test intended for the qualitative detection of nucleic acid from SARS-CoV-2 viral RNA in nasopharyngeal (SOIL CONSERVATION TECHNICIAN) specimens. It is used under Emergency Use Authorization (EUA) by FDA. The limit of detection (LOD) of the assay is 125 Genome Equivalents/mL. A positive result is indicative of the presence of SARS-CoV-2 RNA. ?Clinical correlation with patient history and other diagnostic information is necessary to determine patient infection status. A negative (Not Detected) result does not preclude SARS-CoV-2 infection. In patients with clinical symptoms and other tests that are consistent with SARS-CoV-2 infection, negative results should be treated as presumptive negative and a new specimen should be tested with alternative PCR molecular test. Invalid: Please collect a new specimen for repeat patient testing if clinically indicated. Lab Interpretation Normal (test code = 01505-3) [facility] CampusType and Screen - Type and Screen expires at midnight on the 3rd day after it was drawn. A current Type and Screen is required when RBCs are requested. For all other blood products, a Type and Screen performed during the current hospitalization i...2020-10-26 00:36:33 Test Item Value Reference Range Interpretation Comments ABO & RH (test code A POSITIVE Performe d at [facility] = 20) Laboratory [facility] [address] [place] [address] s [id number] Free: [phone] A No. [id number] IAT (test code = Negative Performed a t [facility] 1185) Laboratory [facility] [address] [place] [address] s [id number] Free: [phone] A No. [id number] [facility] CampusUrinalysis2021-06-22 00:10:34 Test Item Value Reference Range Interpretation Comments APPEARANCE (test code = Cloudy Clear A 1989071645) COLOR (test code = Jyoti Yellow A 0553614941) PH (test code = 4.8-8.0 1730074485) SP GRAVITY (test code = >1.035 1.003-1.035 H 4247675362) GLU U QUAL (test code = Normal Normal 9334985253) BLOOD (test code = Negative Negative 8580604219) KETONES (test code = Negative Negative 6850156484) PROTEIN (test code = 100 mg/dL Negative A 2887-8) UROBILIN (test code = 2.0 mg/dL Normal A 9659965249) BILIRUBIN (test code = Negative Negative 1411493242) NITRITE (test code = Negative Negative 3219847704) LEUK VICENTE (test code = 500/uL Negative A 8540093240) RBC/HPF (test code = See_Comment H [Autom ated message] 3016180957) The system [employer] generated this result transmit tobias reference range : 0 - 3 HPF. The refe rence range was not u sed to interpret th is result as normal/abnormal . WBC/HPF (test code = See_Comment H [Autom ated message] 4063365675) The system [employer] generated this result transmit tobias reference range : 0 - 5 HPF. The refe rence range was not u sed to interpret th is result as normal/abnormal . BACTERIA (test code = Few Negative A 5873733324) SQ EPITH (test code = See_Comment H [Auto mated message] 6431690696) The system [employer] generated this result transmit tobias reference range : <=2 HPF. The refere nce range was not u sed to interpret th is result as normal/abnormal . WBC CLUMPS (test code = See_Comment H [Au tomated message] 7115510618) The system [employer] generated this result transmit tobias reference range : <=1 HPF. The refere nce range was not u sed to interpret th is result as normal/abnormal . Lab Interpretation (test Abnormal code = 04898-8) [facility] CampusCT ABDOMEN PELVIS W [id number] 23:52:55 1. ?Bilateral but more severe on left ovarian enlargement with cysticstructures measuring 5.2 cm inthe left ovary and 5.0 cm in the right ovarywith surrounding free fluid and fat stranding. Findings are concerning forinflammatory / infectious process, as pelvic inflammatory disease,hydrosalpinx, ovarian torsion versus ruptured ovarian cysts. Pelvicultrasound is recommended. 2. ?Multiple small para-aortic and iliac lymph nodes likely reactive. Preliminary Report Dictated by Resident: Bernard Escamilla ?MD Eusebia., have reviewed this study and agree withthe above report.EXAM: CT ABDOMEN/PELVIS WITH CONTRAST HISTORY: ?Abdominal distension ? COMPARISON: None available TECHNIQUE AND FINDINGS: Contiguous axial imaging from the level of the lungbases through the proximal thighs was performed after the administration of120 ?cc of intravenous Isovue contrast. Coronal and sagittalreconstructions were obtained. ?Auto mA and/or iterative reconstructionwere used to reduce radiation dose. FINDINGS: LOWER THORAX: The lungs bases are clear. No cardiomegaly. LIVER: Hepatomegaly measuring 22 cm in the craniocaudal dimension. No focalhepatic lesions. ?Normal contour. GALLBLADDER AND BILIARY TREE: No biliary ductal dilation. ?No gallbladderwall thickening. SPLEEN: No splenomegaly. PANCREAS: Noductal dilation or masses. ADRENAL GLANDS: No adrenal nodules. KIDNEYS: Bilateral symmetrical enhancement. No hydronephrosis, stones, ormasses. GI TRACT: No dilation or wall thickening. The appendix isnormal.Inflammatory changes surround the rectosigmoid colon. PELVIS/BLADDER: Bilateral enlarged ovaries with surrounding free fluid andfat stranding. Cystic structures are noted in the bilateral ovariesmeasuring 4.7 x 5.2 cm in the left side and 3.0 x 5.0 cm in the right side.The urinary bladder is underdistended. PERITONEUM AND RETROPERITONEUM: free fluid in the pelvis. No free airidentified. LYMPHNODES: Multiple small para-aortic and iliac lymph nodes. VESSELS: Unremarkable. BONES AND SOFT TISSUES: No suspicious lytic or sclerotic bony lesions. [facility], Radiant Results Inft User - 10/25/2020 6:54PM CDT EXAM: CT ABDOMEN/PELVIS WITH CONTRASTHISTORY: Abdominal distension COMPARISON: None availableTECHNIQUE AND FINDINGS: Contiguous axial imaging from the level of the lungbases through the proximal thighs was performed after the administration of120 cc of intravenous Isovue contrast. Coronal and sagittalreconstructions were obtained.Auto mA and/or iterative reconstructionwere used to reduce radiation dose.FINDINGS:LOWER THORAX: Thelungs bases are clear. No cardiomegaly.LIVER: Hepatomegaly measuring 22 cm in the craniocaudal dimension. No focalhepatic lesions. Normal contour.GALLBLADDER AND BILIARY TREE: No biliary ductal dilation. No gallbladderwall thickening.SPLEEN: No splenomegaly.PANCREAS: No ductal dilation or masses.ADRENAL GLANDS: No adrenal nodules.KIDNEYS: Bilateral symmetrical enhancement. No hydronephrosis, stones, ormasses.GI TRACT: No dilation or wall thickening. The appendix is normal.Inflammatory changes surround the rectosigmoid colon.PELVIS/BLADDER: Bilateral enlarged ovaries with surrounding free fluid andfat stranding. Cystic structures are noted in the bilateral ovariesmeasuring 4.7 x 5.2 cm in the left side and 3.0 x 5.0 cm in the right side.The urinary bladder is underdistended. PERITONEUM AND RETROPERITONEUM: free fluid in the pelvis. No free airidentified.LYMPH NODES: Multiple small para-aortic and iliac lymph nodes.VESSELS: Unremarkable.BONES AND SOFT TISSUES: No suspicious lytic or sclerotic bony lesions.IMPRESSION1. Bilateral but more severe on left ovarian enlargement with cysticstructuresmeasuring 5.2 cm in the left ovary and 5.0 cm in the right ovarywith surrounding free fluid and fat stranding. Findings are concerning forinflammatory / infectious process, as pelvic inflammatory diseas e,hydrosalpinx, ovarian torsion versus ruptured ovarian cysts. Pelvicultrasound is recommended.2. Multiple small para-aortic and iliac lymph nodes likely reactive.Preliminary Report Dictated by Resident: Bernard Rose MD., have reviewed this study and agree withthe above report. [facility] (NA, K, CL, CO2, GLUCOSE, BUN, CREATININE, CA)2020-10-25 21:40:59 Test Item Value Reference Range Interpretation Comments NA (test code = 136 mmol/L 135-145 5914570289) K (test code = 4.0 mmol/L 3.5-5.0 4809736646) CL (test code = 98 mmol/L 98-108 5891977898) CO2 TOTAL (test code = 26 mmol/L 23-31 1373281868) AGAP (test code = 2-16 6959126400) BUN (test code = 12 mg/dL 7-23 1886844410) GLUCOSE (test code = 118 mg/dL 70-110 H 5054513270) CREATININE (test code = 0.74 mg/dL 0.50-1.04 5385524450) CALCIUM (test code = 9.3 mg/dL 8.6-10.6 9431855096) eGFR (test code = mL/min/1.73m2 1673671218) MARTA (test code = MARTA) Association of Glomerular Filtration Rate (GFR) and Staging of Kidney Disease* + --+ --+ ------+| GFR (mL/min/1.73 m2) ?| With Kidney Damage ?| ?Without Kidney Damage+ --------+ --------+ +| ?>90 ?| ?Stage one ?| ? Normal ?+ ---+ ---+ -------+| ?60-89 ?| ?Stage two ?| ? Decreased GFR ? + --+ --+ ------+| ?30-59 ?| ?Stage three ?| ? Stage three ? + --+ --+ ------+| ?15-29 ?| ?Stage four ? | ? Stage four ?+ ---+ ---+ -------+| ?<15 (or dialysis) ? ?| ?Stage five ? | ? Stage five ?+ ---+ ---+ -------+ *Each stage assumes the associated GFR level has been in effect for at least three months. ?Stages 1 to 5, with or without kidney disease, indicate chronic kidney disease. Notes: Determination of stages one and two (with eGFR >59mL/min/1.73 m2) requires estimation of kidney damage for at least three months as defined by structural or functional abnormalities of the kidney, manifested by either:Pathological abnormalities or Markers of kidney damage (including abnormalities in the composition of the blood or urine or abnormalities in imaging tests). Lab Interpretation Abnormal (test code = 24499-5) [facility] (ALB, T.PRO, BILI T, BU/BC, ALT, AST, ALK PHOS)2020-10-25 21:40:59 Test Item Value Reference Range Interpretation Comments TOTAL BILI (test code = 0981795858) 3.2 mg/dL 0.1-1.1 H BILI UNCON (test code = 8915235872) 1.7 mg/dL 0.1-1.1 H BILI CONJ (test code = 2515653139) 0.1 mg/dL 0.0-0.3 T PROTEIN (test code = 0681206492) 8.2 g/dL 6.3-8.2 ALBUMIN (test code = 6290734550) 3.8 g/dL 3.5-5.0 ALK PHOS (test code = 1905067283) 193 U/L 34-122 H ALTv (test code = 1742-6) 23 U/L 5-35 AST(SGOT) (test code = 1368167068) 24 U/L 13-40 Lab Interpretation (test code = Abnormal 14571-1) [facility] [id number] 21:40:59 Test Item Value Reference Range Interpretation Comments LIPASE (test code = 1195833681) 62 U/L 0-220 Lab Interpretation (test code = Normal 98938-9) [facility]regnancy Test, [id number] 21:36:21 Test Item Value Reference Range Interpretation Comments PREG SERUM (test code Negative = 0685498117) MARTA (test code = MARTA) Less than 10 IU/L. ?If low titer or ectopic is suspected, resubmit specimen in 48-72 hours. [facility] with [id number] 21:31:00 Test Item Value Reference Range Interpretation Comments WBC (test code = See_Comment H [Automated 9308-2) message] The system which generated this result transmit tobias reference range : 4.30 - 11.10 10*3/?L. The reference range was not used to interpret this result as normal/abnormal . RBC (test code = See_Comment L [Automated 169-8) message] The system which generated this result transmit tobias reference range : 3.93 - 5.25 10*6/?L. The reference range was not used to interpret this result as normal/abnormal . HGB (test code = 8.4 g/dL 11.6-15.0 L 718-7) HCT (test code = 26.6 % 35.7-45.2 L 4544-3) MCV (test code = 94.0 fL 80.6-95.5 787-2) MCH (test code = 29.7 pg 25.9-32.8 785-6) MCHC (test code = 31.6 g/dL 31.6-35.1 786-4) RDW-SD (test code = 46.5 fL 39.0-49.9 37210-1) RDW-CV (test code = 13.7 % 12.0-15.5 788-0) PLT (test code = See_Comment H [Automated 777-3) message] The system which generated this result transmit tobias reference range : 166 - 358 10*3/ ?L. The reference range was not u sed to interpret th is result as normal/abnormal . MPV (test code = 9.4 fL 9.5-12.9 L 32199-7) NRBC/100 WBC (test See_Comment [Automat ed code = 2908730085) message] The system which generated this result transmit tobias reference range : 0.0 - 10.0 /100 WBCs. The reference range was not used to interpret this result as normal/abnormal . NRBC x10^3 (test code <0.01 See_Comment [Auto mated = 2190843526) message] The system which generated this result transmit tobias reference range : 10*3/?L. The reference range was not used to interpret this result as normal/abnormal . GRAN MAT (NEUT) % 82.4 % (test code = 770-8) IMM GRAN % (test code 1.10 % = 7098061821) LYMPH % (test code = 9.5 % 736-9) MONO % (test code = 6.4 % 5905-5) EOS % (test code = 0.4 % 713-8) BASO % (test code = 0.2 % 706-2) GRAN MAT x10^3(ANC) 14.00 10*3/uL 1.88-7.09 H (test code = 3133747621) IMM GRAN x10^3 (test 0.19 10*3/uL 0.00-0.06 H code = 5952043381) LYMPH x10^3 (test code 1.61 10*3/uL 1.32-3.29 = 731-0) MONO x10^3 (test code 1.09 10*3/uL 0.33-0.92 H = 742-7) EOS x10^3 (test code = 0.06 10*3/uL 0.03-0.39 711-2) BASO x10^3 (test code 0.04 10*3/uL 0.01-0.07 = 704-7) Lab Interpretation Abnormal (test code = 93406-2) [facility]"
[2021-08-02] MEDS ORDERED: KETOROLAC 30 MG/ML INJ ONE (17:28)
[2021-08-02] MEDS ORDERED: NA CHLORIDE 0.9% 1,000 ML ONE (17:28)
[2021-08-02 17:31] LABS: Urine Blood 3+ (Negative); Urine Glucose Negative (Negative); Urine Protein 3+ (Negative); Urine Specific Gravity >=1.030 (1.005-1.030); Urine pH 6.5 (5.0-7.0)
[2021-08-02 18:26] LABS: Urine Specific Gravity/Preg >1.030 (1.005-1.030)
[2021-08-02 18:56] LABS: Absolute Lymphocytes (CBC) 1.6 K/uL (0.7-4.9); Hematocrit 33.4 % (36.0-45.0); Lymphocytes % 17.2 % (15.3-44.8); MPV 8.7 fL (7.6-11.3); RBC Red Blood Cell Count 3.78 M/uL (3.86-4.86)
--- NOTE | 2021-08-02 18:59 | RAD REPORT ---
EXAM DESCRIPTION: CTAbdomen Pelvis W Contrast - 08/02/2021 6:50 pm CLINICAL HISTORY: Abdominal pain. left flank pain, LLQ pain COMPARISON: No comparisons TECHNIQUE: Biphasic CT imaging of the abdomen and pelvis was performed with 100 ml non-ionic IV cont rast. All CT scans are performed using dose optimization technique as appropriate and may include automated exposure control or mA/KV adjustment according to patient size. FINDINGS: The lung bases are clear. The liver, spleen, pancreas, adrenal glands and kidneys are within normal limits. No bowel obstruction, free air, free fluid or abscess. The appendix is normal. No evidence of signi ficant lymphadenopathy. No suspicious bony findings. IMPRESSION: No acute intra-abdominal or pelvic finding.
[2021-08-02 19:12] LABS: ALT/SGPT 26 U/L (12-78); AST/SGOT 17 U/L (15-37); Alkaline Phosphatase 104 U/L (45-117); BUN Blood Urea Nitrogen 12 mg/dL (7-18); Bicarbonate 27 mmol/L (21-32); Bilirubin Total 0.5 mg/dL (0.2-1.0); Glucose Level 106 mg/dL (74-106); Lipase 114 U/L (73-393); Protein, Total 8.7 g/dL (6.4-8.2); Sodium Level 138 mmol/L (136-145)
--- NOTE | 2021-08-02 19:33 | EDPHYS ---
Physician Documentation [facility] Name: Zayda Wharton Age: 20 yrs Sex: Female : 2000 Arrival Date: 08/02/2021 Time: 16:18 Bed 26 Private MD: ED Physician Cristóbal Ball HPI: 08/02 17:20 This 20 yrs old Female presents to ER via Ambulatory with complaints of pm1 Ovarian Pain, Back Pain. 17:20 The patient presents with abdominal pain in the left lower quadrant. Onset: The pm1 symptoms/episode began/occurred 6 day(s) ago. The symptoms do not radiate. Associated signs and symptoms: Pertinent positives: Left flank pain. The symptoms are described as crampy. Modifying factors: The symptoms are alleviated by nothing, the symptoms are aggravated by nothing. Severity of pain: in the emergency department the pain is actually worse is a 5 / 10. The patient has experienced similar episodes in the past, a few times, today's symptoms are similar, to previous Right ovarian cyst. The patient has not recently seen a physician. 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 - Social history:: Smoking status: Patient denies any tobacco usage or history of. ROS: 17:20 Constitutional: Negative for fever, chills, and weight loss, Cardiovascular: Negative pm1 for chest pain, palpitations, and edema, Respiratory: Negative for shortness of breath, cough, wheezing, and pleuritic chest pain. 17:20 : Negative for injury, bleeding, discharge, and swelling, MS/Extremity: Negative for injury and deformity, Skin: Negative for injury, rash, and discoloration. 17:20 Abdomen/GI: Positive for abdominal pain, of the left lower quadrant, Negative for nausea, vomiting, and diarrhea, constipation. 17:20 Back: Positive for flank pain, on the left. 17:20 All other systems are negative. Exam: 17:20 Constitutional: This is a well developed, well nourished patient who is awake, alert, pm1 and in no acute distress. Head/Face: Normocephalic, atraumatic. 17:20 Skin: Warm, dry with normal turgor. Normal color with no rashes, no lesions, and no evidence of cellulitis. MS/ Extremity: Pulses equal, no cyanosis. Neurovascular intact. Full, normal range of motion. 17:20 Cardiovascular: Exam negative for acute changes, Rate: normal, Rhythm: regular, Pulses: no pulse deficits are appreciated. 17:20 Respiratory: Exam negative for acute changes, respiratory distress, shortness of breath, Breath sounds: are clear throughout. 17:20 Abdomen/GI: Inspection: obese Palpation: abdomen is soft and non-tender, in all quadrants. 17:20 Back: Exam negative for acute changes. 17:20 Neuro: Exam negative for acute changes, Orientation: is normal, Mentation: is normal, Motor: is normal, moves all fours. Vital Signs: 16:46 BP 145 / 98; Pulse 84; Resp 17; Temp 98.1; Pulse Ox 100% ; bp 19:14 BP 139 / 88; Pulse 83; Resp 18; Pulse Ox 100% ; ld1 MDM: 17:10 Patient medically screened. pm1 17:20 Data reviewed: vital signs. Data interpreted: Pulse oximetry: on room air is 100 %. pm1 Interpretation: normal. 19:00 Transition of care: After a detail discussion of the patient's case, care is ms3 transferred to Kyle Camarena MD. 19:31 Counseling: I had a detailed discussion with the patient and/or guardian regarding: the jr8 historical points, exam findings, and any diagnostic results supporting the discharge/admit diagnosis, lab results, radiology results, the need for outpatient follow up, a family practitioner, to return to the emergency department if symptoms worsen or persist or if there are any questions or concerns that arise at home. Response to treatment: the patient's symptoms have markedly improved after treatment. Special discussion: Based on the patient's Hx, exam, and Dx evaluation, there is no indication for emergent surgery or inpatient Tx. It is understood by the patient/guardian that if the Sx's persist or worsen they need to return immediately for re-evaluation. ED course: Patient knows to come back if worse. Feeling much better. No acute findings on labs or imaging. Close return precautions given . 08/02 17:19 Order name: CBC with Diff; Complete Time: 19:03 pm1 08/02 17:19 Order name: CMP; Complete Time: 19:18 pm1 08/02 17:19 Order name: Lipase; Complete Time: 19:18 pm1 08/02 17:19 Order name: CT Abd/Pelvis - IV Contrast Only; Complete Time: 19:03 pm1 08/02 17:31 Order name: Urine Dipstick-Ancillary; Complete Time: 17:36 EDMS 08/02 17:33 Order name: Urine --Ancillary (enter results); Complete Time: 18:54 bd 08/02 17:19 Order name: IV Saline Lock; Complete Time: 17:38 pm1 08/02 17:19 Order name: Labs collected and sent; Complete Time: 17:38 pm1 08/02 17:19 Order name: Urine Dipstick-Ancillary (obtain specimen); Complete Time: 17:30 pm1 08/02 17:19 Order name: Urine Test (obtain specimen); Complete Time: 17:30 pm1 Administered Medications: 17:40 Drug: Ketorolac 30 mg Route: IVP; Site: right antecubital; ld1 17:40 Drug: NS 0.9% 1000 ml Route: IV; Rate: 1000 ml; Site: right antecubital; ld1 Disposition: 21:58 Co-signature as Attending Physician, Cristóbal DON was immediately available on-site ms3 in the Emergency Department for consultation in the care of the patient.. Disposition Summary: 08/02/21 19:32 Discharge Ordered Location: Home jr Problem: new jr8 Symptoms: have improved jr8 Condition: Stable jr8 Diagnosis - Lower abdominal pain, unspecified jr8 Followup: jr8 - With: Private Physician - When: 2 - 3 days - Reason: Recheck today's complaints, Continuance of care, Re-evaluation by your physician Discharge Instructions: - Discharge Summary Sheet jr8 - Abdominal Pain, Adult jr8 Forms: - Medication Reconciliation Form jr8 - Thank You Letter jr8 - Antibiotic Education jr8 - Prescription Opioid Use jr8 Signatures: Dispatcher [employer] EDMS Prashant Durbin PA PA jr8 Martín Rick, BOARDING SPECIALIST BOARDING SPECIALIST pm1 Riley Newton, RN RN Cristóbal Gabriel DO DO ms3 Elvia Sahu, RN RN ld1 Corrections: (The following items were deleted from the chart) 19:37 19:19 Transvaginal Study (Probe)+US.RAD.BRZ ordered. EDMS EDMS
--- NOTE | 2021-08-02 19:33 | ER ---
Nurse's Notes [facility] Name: Zayda Wharton Age: 20 yrs Sex: Female : 2000 Arrival Date: 08/02/2021 Time: 16:18 Bed 26 Private MD: Diagnosis: Lower abdominal pain, unspecified Presentation: 08/02 16:46 Chief complaint: Patient states: 6 DAYS LUMBAR AND PELVIC PAIN, SAME LAST OVARIAN bp CYST. Coronavirus screen: At this time, the client does not indicate any symptoms associated with coronavirus-19. Ebola Screen: No symptoms or risks identified at this time. Initial Sepsis Screen: Does the patient meet any 2 criteria? No. Patient's initial sepsis screen is negative. Does the patient have a suspected source of infection? No. Patient's initial sepsis screen is negative. Risk Assessment: Do you want to hurt yourself or someone else? Patient reports no desire to harm self or others. Onset of symptoms is unknown. 16:46 Method Of Arrival: Ambulatory bp 16:46 Acuity: YECENIA 3 bp Triage Assessment: 16:48 General: Appears in no apparent distress. uncomfortable, obese, Behavior is calm, bp cooperative, appropriate for age. Pain: Complains of pain in low back area and suprapubic area. EENT: No deficits noted. Neuro: No deficits noted. Cardiovascular: No deficits noted. Respiratory: No deficits noted. GI: No signs and/or symptoms were reported involving the gastrointestinal system. : No signs and/or symptoms were reported regarding the genitourinary system. Derm: No deficits noted. Musculoskeletal: Circulation, motion, and sensation intact. Range of motion: intact in all extremities. 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 - Social history:: Smoking status: Patient denies any tobacco usage or history of. Screenin:18 Abuse screen: Denies threats or abuse. Denies injuries from another. Nutritional ld1 screening: No deficits noted. Tuberculosis screening: No symptoms or risk factors identified. Fall Risk None identified. Assessment: 17:18 General: Appears in no apparent distress. comfortable, Behavior is calm, cooperative, ld1 appropriate for age. Pain: Complains of pain in back and suprapubic area Pain does not radiate. Pain currently is 8 out of 10 on a pain scale. Quality of pain is described as throbbing. Neuro: Level of Consciousness is awake, alert, obeys commands, Oriented to person, place, time, situation, Appropriate for age. Cardiovascular: Capillary refill < 3 seconds Patient's skin is warm and dry. Respiratory: Airway is patent Respiratory effort is even, unlabored, Respiratory pattern is regular, symmetrical. GI: Abdomen is flat, non-distended. : No signs and/or symptoms were reported regarding the genitourinary system. EENT: No signs and/or symptoms were reported regarding the EENT system. Derm: No signs and/or symptoms reported regarding the dermatologic system. Musculoskeletal: No signs and/or symptoms reported regarding the musculoskeletal system. 20:10 Reassessment: Patient appears in no apparent distress at this time. No changes from ld1 previously documented assessment. Patient and/or family updated on plan of care and expected duration. Pain level reassessed. Vital Signs: 16:46 BP 145 / 98; Pulse 84; Resp 17; Temp 98.1; Pulse Ox 100% ; bp 19:14 BP 139 / 88; Pulse 83; Resp 18; Pulse Ox 100% ; ld1 ED Course: 16:18 Patient arrived in ED. ds1 16:48 Triage completed. bp 16:48 Arm band placed on. bp 17:10 Martín Rick NP is PHCP. pm1 17:10 Cristóbal Ball DO is Attending Physician. pm1 17:17 Elvia Sahu, NARENDRA is Primary Nurse. ld1 17:18 Patient has correct armband on for positive identification. Placed in gown. Bed in low ld1 position. Call light in reach. Side rails up X2. farm equipment mechanic apprentice on. Pulse ox on. NIBP on. Door closed. Noise minimized. Warm blanket given. 17:18 No provider procedures requiring assistance completed. ld1 17:38 CBC with Diff Sent. mh5 17:38 CMP Sent. mh5 17:38 Lipase Sent. 5 17:38 Urine --Ancillary (enter results) Sent. mh5 17:38 Initial lab(s) drawn, by me, sent to lab. Inserted saline lock: 20 gauge in right [facility] antecubital area, using aseptic technique. Blood collected. 18:52 CT Abd/Pelvis - IV Contrast Only In Process Unspecified. EDMS 19:15 Prashant Durbin PA is PHCP. jr8 19:15 Cristóbal Ball DO is Attending Physician. jr8 20:10 IV discontinued, intact, bleeding controlled, No redness/swelling at site. ld1 Administered Medications: 17:40 Drug: Ketorolac 30 mg Route: IVP; Site: right antecubital; ld1 17:40 Drug: NS 0.9% 1000 ml Route: IV; Rate: 1000 ml; Site: right antecubital; ld1 Outcome: 19:32 Discharge ordered by . jr8 20:10 Discharged to home ambulatory. ld1 20:10 Condition: stable 20:10 Discharge instructions given to patient, Instructed on discharge instructions, follow up and referral plans. Demonstrated understanding of instructions, follow-up care. 20:11 Patient left the ED. ld1 Signatures: Dispatcher [employer] EDWA Laly Egan 1 Prashant Durbin PA PA jr8 Martín Rick, SANDI CLIENT SERVICE REPRESENTATIVE pm1 Cristina Babb 5 Riley Newton, NARENDRA RN Elvia Hwang RN RN ld1
[2021-08-02 20:18] VITALS: TEMP 98.1; O2SAT 100
[2021-08-02 20:19] VITALS: BP 139/88
== END 2021-08-02 20:11 | disposition home or self-care (01) ==
LOC: ER 16:14
DX: R10.32 Left lower quadrant pain (principal)
CPT/HCPCS: 36415; 74177; 80053; 81003; 81025; 83690; 85025; 96374; 99284; J7030; Q9967